=== PATIENT | male | born 1955 | race Caucasian/White ===

== ENCOUNTER 2023-03-30 11:20 | Inpatient (IN) ==
[2023-03-30] MEDS ORDERED: fentaNYL citrate PF 100 MCG/2 ML VIAL IV STA ×2 (11:49→13:59)
--- NOTE | 2023-03-30 11:55 | Emergency Department Note ---
History of Present Illness General Chief complaint: Illness Stated complaint: FALL,HIT HEAD, RSV,PAIN IN RIBS Time Seen by Provider: 03/30/23 11:43 History of Present Illness Maximum Pain Intensity: 10 67-year-old male presents emergency department with worsening cough and right back pain. The patient was seen in [facility] emergency department on 26 March for a fall in which she had hit his head and injured the right side of his rib cage. Patient had at the time a complete evaluation in the emergency department including lab work which included a troponin and a D-dimer electrolytes CBC a chest x-ray a CT of his head neck chest and abdomen pelvis. Reportedly did not have any fractured ribs or intracranial hemorrhage. Patient drove back from [place] and has had increased shortness of breath and swelling to the legs bilaterally increased cough and increased back pain as he states that he coughed and he felt like a rib had cracked. Patient denies hemoptysis. Patient denies fever or substernal chest pressure. According to the family at bedside he also was diagnosed with RSV bronchitis and reportedly a swab was done at the time for that diagnosis. Home Medications Medication Instructions Recorded Confirmed Type acetaminophen 500 mg tablet 500 mg PO Q6H PRN PAIN/FEVER 03/30/23 03/30/23 History ibuprofen 200 mg tablet 200 mg PO Q6H PRN PAIN/FEVER 03/30/23 03/30/23 History latanoprost 0.005 % eye drops 1 drp OPB HS 03/30/23 03/30/23 History Allergies Allergy/AdvReac Type Severity Reaction Status Date / Time No Known Allergies Allergy Unknown Verified 03/30/23 14:56 Past Med/Surg History Medical History Family history of colon cancer Family history of skin cancer Mother Surgical History History of cholecystectomy Social History Smoking Status: Never smoker Hx Alcohol Use: No Immunizations: Past medical history includes onychomycoses Immunizations his tetanus is up-to-date Review of Systems A total of 10 systems reviewed and were otherwise negative Constitutional: + body aches; no fever Respiratory: + cough and + dyspnea Cardiovascular: no chest pain Gastrointestinal: no abdominal pain Physical Exam Vital Signs Vital Signs - 24 hr 03/30/23 11:30 03/30/23 12:26 03/30/23 12:30 Temperature 36.8 C Temperature Source Temporal Artery Scan Pulse Rate 92 H 73 Pulse Rate [Apical] Pulse Rate from SpO2 Sensor 74 Respiratory Rate 18 17 Blood Pressure 166/93 H Blood Pressure [Right Arm] Blood Pressure Mean 117 Blood Pressure Mean [Right Arm] Pulse Oximetry 95 93 93 Oxygen Delivery Method Room Air Nasal Cannula Oxygen Flow Rate 2 Sepsis Recent Fever Within 48 Hours No Sepsis New/Unexplained Change in Mental Status No Sepsis Action Taken by Nursing No Action Required 03/30/23 12:30 03/30/23 12:30 03/30/23 12:53 Temperature Temperature Source Pulse Rate 73 72 Pulse Rate [Apical] Pulse Rate from SpO2 Sensor 73 Respiratory Rate 19 Blood Pressure 163/91 H Blood Pressure [Right Arm] Blood Pressure Mean 130 Blood Pressure Mean [Right Arm] Pulse Oximetry 93 Oxygen Delivery Method Oxygen Flow Rate Sepsis Recent Fever Within 48 Hours Sepsis New/Unexplained Change in Mental Status Sepsis Action Taken by Nursing 03/30/23 13:00 03/30/23 13:00 03/30/23 15:59 Temperature Temperature Source Pulse Rate 70 Pulse Rate [Apical] 77 Pulse Rate from SpO2 Sensor 71 Respiratory Rate 17 18 Blood Pressure 155/94 H Blood Pressure [Right Arm] 172/97 H Blood Pressure Mean 109 Blood Pressure Mean [Right Arm] 122 Pulse Oximetry 94 93 Oxygen Delivery Method Oxygen Flow Rate Sepsis Recent Fever Within 48 Hours Sepsis New/Unexplained Change in Mental Status Sepsis Action Taken by Nursing GENERAL: Patient is awake alert in no acute distress patient is resting comfortably and showing no signs of anxiety EYES: The conjunctivae are clear. The pupils are round and reactive. Head exam reveals an area of abrasion and ecchymosis to the right side of his forehead EARS, NOSE, MOUTH AND THROAT: The nose is without any evidence of any deformity. Mucous membranes are moist. Tongue is midline. NECK: The neck is nontender and supple. RESPIRATORY: Rhonchi bilaterally CARDIOVASCULAR: Regular rate and rhythm noted there no murmurs rubs or gallops normal S1 normal S2. GASTROINTESTINAL: The abdomen is soft. Abdomen is nontender. PELVIS: The Pelvis is stable. No tenderness to palpation is noted. BACK: Patient has tenderness to the right mid back laterally, there is no obvious ecchymosis, no crepitance MUSCULOSKELETAL/EXTREMITIES: There is no evidence of gross deformity full range of motion is noted in the hips and shoulders. There is bilateral lower extremity edema present the calves are nontender SKIN: There is no obvious evidence of any rash. There are no petechiae, pallor or cyanosis noted. NEUROLOGIC: Patient is awake alert and oriented x3 strength is symmetric Course Reevaluation(s) Reevaluation #1: Patient on repeat examination is feeling much improved. Patient states that he is hungry. Patient is currently on 2 L of oxygen. Patient is in no major respiratory distress. I discussed the evaluation with the patient the patient's family member at bedside for admission Time: 15:09 Consultations Consultation #1: [facility], pneumonitis, RSV, influenza Time: 15:10 Administered Medications Discontinued Medications Fentanyl Citrate (Fentanyl Citrate Pf 100 Mcg/2 Ml Vial) 50 mcg IV NOW STA Stop: 03/30/23 11:50 Last Admin: 03/30/23 12:07 Dose: 50 mcg Documented By: LYLE Fentanyl Citrate (Fentanyl Citrate Pf 100 Mcg/2 Ml Vial) 50 mcg IV NOW STA Stop: 03/30/23 14:00 Last Admin: 03/30/23 14:08 Dose: 50 mcg Documented By: LYLE Ioversol (Optiray 320 125ml) 117 ml IV ONCE ONE Stop: 03/30/23 13:55 Last Admin: 03/30/23 13:55 Dose: 117 ml Documented By: LAMONTE Critical Care Time Critical Care Time: Yes Total Critical Care Time: 35 I have personally spent greater than 35 minutes of critical care time in the direct management of this patient. This includes bedside care, interpretation of diagnostic studies, and testing, discussion with consultants, patient, and family members, and other required patient management activities. These minutes are in excess of all separately billable procedures. Medical Decision Making Medical Records Attestation: I reviewed the patient's medical records. Home Medications Current Medication List: was personally reviewed by me Laboratory Data Attestation: I reviewed the patient's lab results. Labs interpreted by me patient has hyponatremia 03/30/23 12:00 03/30/23 12:00 Lab Results 03/30/23 03/30/23 Range/Units 12:00 12:27 WBC 5.85 (4.8-10.8) K/ul RBC 4.57 L (4.70-6.10) M/uL Hgb 13.5 L (14.0-18.0) g/dl Hct 37.9 L (42.0-52.0) % MCV 82.9 (80.0-100.0) fL MCH 29.5 (25.0-34.0) pg MCHC 35.6 (32.0-36.0) g/dL RDW Std Deviation 41.1 (36.4-46.3) fL RDW Coeff of Rosas 13.6 (11.5-14.5) % Plt Count 213 (130-400) K/uL MPV 10.8 (9.4-12.4) fL Immature Gran % (Auto) 0.7 % Neut % (Auto) 82.2 % Lymph % (Auto) 7.5 % [place] % (Auto) 8.5 % Eos % (Auto) 0.9 % Baso % (Auto) 0.2 % Neut # (Auto) 4.81 (1.40-6.50) K/uL Lymph # (Auto) 0.44 L (1.20-3.40) K/uL [place] # (Auto) 0.50 (0.11-0.59) K/uL Eos # (Auto) 0.05 (0.00-0.50) K/uL Baso # (Auto) 0.01 (0.00-0.20) K/uL Immature Gran # (Auto) 0.04 (0.01-0.20) K/uL PT 10.9 (9.0-12.0) Seconds INR 1.0 (0.9-1.1) APTT 29 (21-31) Seconds PTT Ratio 1.0 Sodium 127 L (136-145) mmol/L Potassium 3.9 (3.5-5.1) mmol/L Chloride 95 L (98-107) mmol/L Carbon Dioxide 25 (21-32) mmol/L Anion Gap 7 (3-11) BUN 13 (6-23) mg/dl Creatinine 0.72 (0.6-1.4) mg/dl Est Cr Clr Drug Dosing 140.5 ml/min Est GFR ( Amer) 113.5 ml/min Est GFR (Non-Af Amer) 97.9 ml/min BUN/Creatinine Ratio 18.1 (10-20) Glucose 141 H (70-99(Fasting)) mg/dl Lactate 1.5 (0.4-2.0) mmol/L Calcium 8.3 L (8.6-10.3) mg/dl Magnesium 1.8 (1.7-2.4) mg/dl Total Bilirubin 0.7 (0.2-1.0) mg/dl Direct Bilirubin 0.2 (0-0.2) mg/dl AST 66 H (13-39) U/L ALT 108 H (7-52) U/L Alkaline Phosphatase 115 H (34-104) U/L Troponin I High Sens 4.3 (0-20) pg/ml Total Protein 6.7 (6.0-8.3) gm/dl Albumin 4.0 (3.4-5.0) gm/dl Procalcitonin 0.15 (0-0.5) ng/ml Adenovirus (PCR) Not Detected (NotDetected) B. pertussis DNA (PCR) Not Detected (NotDetected) B.parapertussis DNA PCR Not Detected (NotDetected) C. pneumoniae DNA (PCR) Not Detected (NotDetected) Coronavirus OC43 (PCR) Not Detected (NotDetected) Coronavirus HKU1 (PCR) Not Detected (NotDetected) Coronavirus 229E (PCR) Not Detected (NotDetected) SARS-CoV-2 (PCR) Not Detected (NotDetected) Coronavirus NL63 (PCR) Not Detected (NotDetected) Human Metapneumovir PCR Not Detected (NotDetected) Influenza A (H3) PCR DETECTED A* (NotDetected) Influenza Type B (PCR) Not Detected (NotDetected) M. pneumoniae (PCR) Not Detected (NotDetected) Parainfluenza 1 (PCR) Not Detected (NotDetected) Parainfluenza 2 (PCR) Not Detected (NotDetected) Parainfluenza 3 (PCR) Not Detected (NotDetected) Parainfluenza 4 (PCR) Not Detected (NotDetected) RSV (PCR) DETECTED A* (NotDetected) Entero/Rhino (PCR) Not Detected (NotDetected) Imaging Data Attestation: I personally reviewed and interpreted this imaging study as follows: My Impression: Chest x-ray interpreted by me negative for pneumothorax infiltrate or obvious rib fracture Radiologist's Impression: Chest X-Ray 03/30/23 11:49 XR chest 1V portable CLINICAL HISTORY: Sepsis TECHNIQUE: Single frontal radiograph of the chest was obtained. Comparison: None available at the time of this dictation. FINDINGS: Exam is limited by underpenetration. Cardiomegaly is noted. Atelectasis is seen bilaterally. No evidence of pleural effusion or pneumothorax. IMPRESSION: No acute abnormalities and in particular no radiographic evidence of pneumonia. ACT 112: Negative or not required by law. Electronically signed by: Joshua Potter M.D. 03/30/2023 1:01 PM Chest CTA 03/30/23 13:04 CHEST CTA for PULMONARY ARTERIES CT DOSE: 915.23 mGy.cm HISTORY: Shortness of breath. PE TECHNIQUE: Multiaxial CT images of the chest were performed following the intravenous administration of contrast to evaluate the pulmonary arteries. 3D/Maximal intensity projection images were also obtained. Sagittal and coronal reformations were also reviewed. A dose lowering technique was utilized adhering to the principles of ALARA. COMPARISON STUDY: None. FINDINGS: Mild chronic anterior wedging at T7. There are acute nondisplaced right fifth through ninth rib fractures. The seventh and eighth ribs demonstrate both anterior and posterior lateral fractures. Limited views the upper abdomen demonstrate a normal liver, spleen, and adrenal glands. Prior cholecystectomy. Mild circumferential thickening of the distal esophagus with a few prominent distal paraesophageal lymph nodes. Dominant paraesophageal lymph node on image 94 measures 13 x 7 mm. Scattered mediastinal lymph nodes measure subcentimeter in short axis diameter and therefore do not meet CT criteria for pathologic involvement. No hilar lymphadenopathy. Trace right pleural effusion is noted. No left pleural effusion. No pericardial effusion. The heart is borderline enlarged. Normal caliber thoracic aorta with no evidence for a dissection. Mild coronary artery calcifications are noted. No filling defects within the pulmonary arteries to suggest a pulmonary embolus. Mild bronchial wall thickening. No pneumothorax. A 3 mm subpleural nodule within the right lung apex on image 199. A few scattered patchy and linear densities within the lung bases most pronounced within the right lower lobe. This could represent a combination of subsegmental atelectasis and a low-grade pneumonitis. There is a 6 mm nodule within the right lower lobe on image 131. Trace mucoid material within the trachea and mainstem bronchi. IMPRESSION: 1. No evidence for a pulmonary embolus. 2. Right fifth through ninth acute rib fractures as described above. No pneumothorax. 3. Trace right pleural effusion. 4. A 6 mm indeterminate pulmonary nodule within the right lower lobe. Please refer to the chart below for recommended follow-up. 5. A few scattered patchy and linear densities within the lung bases most pronounced within the right lower lobe. This could represent a combination of subsegmental atelectasis and a low-grade pneumonitis possibly secondary to aspiration. 6. Mild circumferential thickening of the distal esophagus with a few prominent distal paraesophageal lymph nodes. This may represent a mild esophagitis. 7. Additional findings as described above. Please refer to below summary of Fleischner criteria recommendations for follow- up of incidental CT nodules (Melissa Artis, Guidelines for management of small pulmonary nodules detected on CT scans: A statement from the Fleischner Society, Radiology 237: [phone].) SOLID NODULES Solitary nodule size: <6 mm * Low risk patients: no follow-up needed * high risk patients: optional CT at 12 months Solitary nodule size: 6-8 mm * Low risk patients: follow-up at 6-12 months, then consider further follow-up at 18-24 months * high risk patients: initial follow-up CT at 6-12 months and then at 18-24 months if no change Solitary nodule size: >8 mm * either low or high risk patients - consider follow-up CT at 3 months, and/or CT-PET, and/or biopsy Multiple nodules size: <6 mm * Low risk patients: no routine follow-up * high risk patients: optional CT at 12 months Multiple nodules size: 6-8 mm * Low risk patients: follow-up at 3-6 months, then consider further follow-up at 18-24 months * high risk patients: follow-up at 3-6 months, then at 18-24 months if no change Multiple nodules size: >8 mm * Low risk patients: follow-up at 3-6 months, then consider further follow-up at 18-24 months * high risk patients: follow-up at 3-6 months, then at 18-24 months if no change Note: newly detected indeterminate nodule in persons 35 years of age or older. * Low risk patients: minimal or absent history of smoking and/or other known risk factors * high risk patients: history of smoking or of other known risk factors (e.g. first degree relative with lung cancer, or exposure to asbestos, radon, uranium) * if a nodule up to 8 mm is partly solid or is ground glass further follow-up is required after 24 months to exclude possible slow growing adenocarcinoma (CAROL) SUBSOLID NODULES Solitary pure ground-glass nodule * nodule size <6 mm - no CT follow-up required * nodule size >=6 mm - follow-up CT at 6-12 months, then every 2 years until 5 years Solitary part-solid nodule * nodule size <6 mm - no CT follow-up required * nodule size >=6 mm - follow-up CT at 3-6 months. If unchanged, and solid component remains <6 mm, then annual follow-up for 5 years Multiple subsolid nodules * nodule size <6 mm - follow-up CT at 3-6 months, consider further follow-up at 2 and 4 years if stable * nodule size >=6 mm - follow-up CT at 3-6 months, subsequent management based on the most suspicious nodule(s) ACT 112: Negative or not required by law. Electronically signed by: Wale Castro M.D. 03/30/2023 2:46 PM ECG Data Attestation: I personally reviewed and interpreted this ECG as follows: Additional Comments: EKG interpreted by me normal sinus rhythm rate of 73, left axis deviation, nonspecific T abnormality, no obvious ST segment elevation or depression Telemetry was ordered by me, interpreted as normal sinus rhythm rate of 73 MDM Narrative Medical decision making differential diagnosis includes pneumonia, rib fracture, bronchitis, upper respiratory tract infection Plan is to check labs, EKG, chest x-ray, give IV pain medicine I did review the emergency department discharge notes of what was performed on 03/26/2023 at the [facility] in [facility] Patient's family is at bedside to provide me history of the patient deteriorating with an increased cough and increased rib pain and shortness of breath as well as swelling since the event on March 26 I do not suspect the patient to be in septic shock at this time. Patient was started empirically on Zosyn, the patient is influenza and RSV positive with multiple rib fractures. Patient has no evidence of pneumothorax. Patient is much improved after IV fentanyl dosing x 2. We will admit the patient for aggressive pulmonary toilet and further treatment of his pain Impression & Plan Multiple fractures of ribs of right side, Pneumonitis, Influenza A, RSV infection Discharge Plan Visit Data Chief Complaint: Illness Stated Complaint: FALL,HIT HEAD, RSV,PAIN IN RIBS ED Provider: James Briones Discharge Problem: Multiple fractures of ribs of right side, Pneumonitis, Influenza A, RSV infection Patient Disposition: Admitted As Inpatient Forms Stand Alone Forms: [facility] Prescriptions Prescriptions: No Action latanoprost 0.005 % drops 1 drp OPB HS acetaminophen [Tylenol Ex Str Rapid Release] 500 mg Tablet 500 mg PO Q6H PRN (Reason: PAIN/FEVER) ibuprofen 200 mg Tablet 200 mg PO Q6H PRN (Reason: PAIN/FEVER) Referrals Referrals: Luis Baez MD [Outside Practitioners] -
[2023-03-30 12:20] LABS: Basophils # (auto) 0.01 K/uL (0.00-0.20); Basophils % (auto) 0.2 %; Eosinophils # (auto) 0.05 K/uL (0.00-0.50); Eosinophils % (auto) 0.9 %; Hematocrit (blood only) 37.9 % (42.0-52.0); Hemoglobin 13.5 g/dl (14.0-18.0); Immature Granulocytes # (auto) 0.04 K/uL (0.01-0.20); Immature Granulocytes % (auto) 0.7 %; Lymphocytes # (auto) 0.44 K/uL (1.20-3.40); Lymphocytes % (auto) 7.5 %; Mean Corpuscular Hemoglobin 29.5 pg (25.0-34.0); Mean Corpuscular Hgb Conc 35.6 g/dL (32.0-36.0); Mean Corpuscular Volume 82.9 fL (80.0-100.0); Mean Platelet Volume 10.8 fL (9.4-12.4); Monocytes % (auto) 8.5 %; Neutrophils # (auto) 4.81 K/uL (1.40-6.50); Neutrophils % (auto) 82.2 %; Platelet Count 213 K/uL (130-400); RDW Coefficient of Variation 13.6 % (11.5-14.5); RDW Standard Deviation 41.1 fL (36.4-46.3); Red Blood Count 4.57 M/uL (4.70-6.10); White Blood Count 5.85 K/ul (4.8-10.8)
[2023-03-30 12:35] LABS: BUN Creatinine Ratio 18.1 (10-20); Bilirubin Direct 0.2 mg/dl (0-0.2); Bilirubin,Total 0.7 mg/dl (0.2-1.0); Calcium 8.3 mg/dl (8.6-10.3); Creatinine Clr Calc Pharmacy 140.5 ml/min; Est GFR (African American) 113.5 ml/min; Est GFR (Non-African American) 97.9 ml/min; Magnesium 1.8 mg/dl (1.7-2.4); Potassium 3.9 mmol/L (3.5-5.1); Total Protein 6.7 gm/dl (6.0-8.3)
[2023-03-30 12:41] LABS: Troponin I High Sensitivity 4.3 pg/ml (0-20)
[2023-03-30 12:56] LABS: Partial Thromboplastin Time 29 Seconds (21-31); Prothrombin Time 10.9 Seconds (9.0-12.0)
--- NOTE | 2023-03-30 13:03 | XRay Report ---
XR chest 1V portable CLINICAL HISTORY: Sepsis TECHNIQUE: Single frontal radiograph of the chest was obtained. Comparison: None available at the time of this dictation. FINDINGS: Exam is limited by underpenetration. Cardiomegaly is noted. Atelectasis is seen bilaterally. No evide nce of pleural effusion or pneumothorax. IMPRESSION: No acute abnormalities and in particular no radiographic evidence of pneumonia. ACT 112: Negative or not required by law. Electronically signed by: Joshua Potter M.D. 03/30/2023 1:01 PM
[2023-03-30 13:34] LABS: Adenovirus PCR Not Detected (NotDetected); Bordetella parapertussis PCR Not Detected (NotDetected); Bordetella pertussis PCR Not Detected (NotDetected); Chlamydia pneumoniae PCR Not Detected (NotDetected); Coronavirus 229E PCR Not Detected (NotDetected); Coronavirus CoV-2 (COVID19)PCR Not Detected (NotDetected); Coronavirus HKU1 PCR Not Detected (NotDetected); Coronavirus NL63 PCR Not Detected (NotDetected); Coronavirus OC43PCR Not Detected (NotDetected); Human Metapneumovirus PCR Not Detected (NotDetected); Influenza B PCR Not Detected (NotDetected); Mycoplasma pneumoniae PCR Not Detected (NotDetected); Parainfluenza Virus 1 PCR Not Detected (NotDetected); Parainfluenza Virus 2 PCR Not Detected (NotDetected); Parainfluenza Virus 3 PCR Not Detected (NotDetected); Parainfluenza Virus 4 PCR Not Detected (NotDetected); Rhinovirus/Enterovirus PCR Not Detected (NotDetected)
[2023-03-30 13:37] LABS: Influenza A (H3) PCR DETECTED (NotDetected); Respiratory Syncytial VirusPCR DETECTED (NotDetected)
[2023-03-30] MEDS ORDERED: OPTIRAY 320 125ml IV ONE (13:54)
--- NOTE | 2023-03-30 14:47 | CT Scan Report ---
CHEST CTA for PULMONARY ARTERIES CT DOSE: 915.23 mGy.cm HISTORY: Shortness of breath. PE TECHNIQUE: Multiaxial CT images of the chest were performed following the intravenous administration of contrast to evaluate the pulmonary arteries. 3D/Maximal intensity projection images were also obta ined. Sagittal and coronal reformations were also reviewed. A dose lowering technique was utilized a dhering to the principles of ALARA. COMPARISON STUDY: None. FINDINGS: Mild chronic anterior wedging at T7. There are acute nondisplaced right fifth through ninth rib fractures. The seventh and eighth ribs demonstrate both anterior and posterior lateral fractures . Limited views the upper abdomen demonstrate a normal liver, spleen, and adrenal glands. Prior anali cystectomy. Mild circumferential thickening of the distal esophagus with a few prominent distal parae sophageal lymph nodes. Dominant paraesophageal lymph node on image 94 measures 13 x 7 mm. Scattered m ediastinal lymph nodes measure subcentimeter in short axis diameter and therefore do not meet CT crit eria for pathologic involvement. No hilar lymphadenopathy. Trace right pleural effusion is noted. No left pleural effusion. No pericardial effusion. The heart is borderline enlarged. Normal caliber thor acic aorta with no evidence for a dissection. Mild coronary artery calcifications are noted. No filli ng defects within the pulmonary arteries to suggest a pulmonary embolus. Mild bronchial wall thickeni ng. No pneumothorax. A 3 mm subpleural nodule within the right lung apex on image 199. A few scattere d patchy and linear densities within the lung bases most pronounced within the right lower lobe. This could represent a combination of subsegmental atelectasis and a low-grade pneumonitis. There is a 6 mm nodule within the right lower lobe on image 131. Trace mucoid material within the trachea and main stem bronchi. IMPRESSION: 1. No evidence for a pulmonary embolus. 2. Right fifth through ninth acute rib fractures as described above. No pneumothorax. 3. Trace right pleural effusion. 4. A 6 mm indeterminate pulmonary nodule within the right lower lobe. Please refer to the chart below for recommended follow-up. 5. A few scattered patchy and linear densities within the lung bases most pronounced within the right lower lobe. This could represent a combination of subsegmental atelectasis and a low-grade pneumonit is possibly secondary to aspiration. 6. Mild circumferential thickening of the distal esophagus with a few prominent distal paraesophageal lymph nodes. This may represent a mild esophagitis. 7. Additional findings as described above. Please refer to below summary of Fleischner criteria recommendations for follow-up of incidental CT n odules (Melissa Artis, Guidelines for management of small pulmonary nodules detected on CT scans: A jay wilcox from the Fleischner Society, Radiology 237: [phone].) SOLID NODULES Solitary nodule size: <6 mm * Low risk patients: no follow-up needed * high risk patients: optional CT at 12 months Solitary nodule size: 6-8 mm * Low risk patients: follow-up at 6-12 months, then consider further follow-up at 18-24 months * high risk patients: initial follow-up CT at 6-12 months and then at 18-24 months if no change Solitary nodule size: >8 mm * either low or high risk patients - consider follow-up CT at 3 months, and/or CT-PET, and/or biopsy Multiple nodules size: <6 mm * Low risk patients: no routine follow-up * high risk patients: optional CT at 12 months Multiple nodules size: 6-8 mm * Low risk patients: follow-up at 3-6 months, then consider further follow-up at 18-24 months * high risk patients: follow-up at 3-6 months, then at 18-24 months if no change Multiple nodules size: >8 mm * Low risk patients: follow-up at 3-6 months, then consider further follow-up at 18-24 months * high risk patients: follow-up at 3-6 months, then at 18-24 months if no change Note: newly detected indeterminate nodule in persons 35 years of age or older. * Low risk patients: minimal or absent history of smoking and/or other known risk factors * high risk patients: history of smoking or of other known risk factors (e.g. first degree relative with lung cancer, or exposure to asbestos, radon, uranium) * if a nodule up to 8 mm is partly solid or is ground glass further follow-up is required after 24 m onths to exclude possible slow growing adenocarcinoma (CAROL) SUBSOLID NODULES Solitary pure ground-glass nodule * nodule size <6 mm - no CT follow-up required * nodule size >=6 mm - follow-up CT at 6-12 months, then every 2 years until 5 years Solitary part-solid nodule * nodule size <6 mm - no CT follow-up required * nodule size >=6 mm - follow-up CT at 3-6 months. If unchanged, and solid component remains <6 mm, then annual follow-up for 5 years Multiple subsolid nodules * nodule size <6 mm - follow-up CT at 3-6 months, consider further follow-up at 2 and 4 years if sta ble * nodule size >=6 mm - follow-up CT at 3-6 months, subsequent management based on the most suspiciou s nodule(s) ACT 112: Negative or not required by law. Electronically signed by: Wale Castro M.D. 03/30/2023 2:46 PM
[2023-03-30] MEDS ORDERED: PIPERACILLIN/TAZOBACTAM 4.5 GM/100 ML BAG IV ONE (14:51)
[2023-03-30] MEDS: SODIUM CHLORIDE 0.9% 1,000 ML IV SCH (17:38)
[2023-03-30] MEDS: LIDOCAINE 5% 1 PATCH TD SCH (17:55)
[2023-03-30] MEDS: ACETAMINOPHEN 500 MG TAB PO SCH (17:55)
--- NOTE | 2023-03-30 19:54 | History & Physical Report ---
Date of Service March 30, 2023 Assessment & Plan (1) Multiple fractures of ribs of right side: Plan: Admit to [facility] with telemetry Patient presenting from home with reports of severe right-sided rib pain. Was in [place] last week for his son's wedding and suffered a syncopal event. Was evaluated in the ED and per patient report, had unremarkable head, neck, chest CT. Was diagnosed with RSV. In the ED today, CT chest shows right fifth through ninth acute nondisplaced rib fractures, seventh and eighth ribs have anterior and posterior lateral fractures. Patient became mildly hypoxic after receiving IV pain medication, currently satting well on 2 L of oxygen via nasal cannula Pain control with scheduled Tylenol, Lidoderm patch, PRN oxycodone and IV morphine for breakthrough pain Incentive spirometer (2) Pneumonitis: (3) Influenza A: (4) RSV infection: Plan: Bio fire + for RSV and influenza A CTA chest shows patchy and linear densities within the lung bases, greater on the right No leukocytosis, afebrile, procalcitonin WNL Likely secondary to atelectasis from rib fractures Received IV Zosyn in the ED, will hold on further antibiotics at this time Given duration of symptoms, Tamiflu not indicated for influenza A Continue supportive care with IVF, Mucinex, incentive spirometer, flutter valve (5) Pulmonary nodule: Plan: CTA chest shows A 6 mm indeterminate pulmonary nodule within the right lower lobe Outpatient follow-up Low risk patients: follow-up at 6-12 months, then consider further follow-up at 18-24 months DVT PROPHYLAXIS SQ Lovenox Patient seen in collaboration with Dr. Giron. I spent a total of 75 minutes coordinating, documenting, and providing care for this patient excluding time spent in the performance of separately billed services. This included personally reviewing all current laboratories and im aging studies, medication reconciliation, outpatient chart review, and discussion with specialists. Admission and Anticipated Discharge Date Admission Date: March 30, 2023 History of Present Illness Chief Complaint: Rib pain Primary Care Provider: Tony Lawson MD 67-year-old male without significant past medical or surgical history who presents to the ED for evaluation of right rib pain. History is obtained from the patient and review of outpatient PCP records. Patient reports he developed cold-like symptoms last week. He then traveled to [place] on 03/24 for his son's wedding. Patient was at the rehearsal dinner on 03/26 when he states he started to feel worse. Reports that he felt lightheaded and like he needed to get some fresh air. Patient reports that he was walking down a long flight of steps and reached the door at the bottom and that his last thing he remembers. He woke up on the ground with EMS present. Patient did strike his head on the concrete. He was taken to a local ED. Patient reports he had a CT scan of his head, neck, chest. States that findings were unremarkable. He was also diagnosed with RSV. Patient attended his son's wedding on the following day and traveled back to [place] the next day. Patient reports ongoing severe right-sided rib pain. He has had a cough however it has been limited secondary to severe rib pain. States he has chest congestion however is unable to produce any mucus. Patient denies chest pain and shortness of breath. No further episodes of lightheadedness, dizziness, syncopal events. Reports a fair appetite however denies abdominal pain, nausea, vomiting, diarrhea. No urinary symptoms. In the ED, patient is hemodynamically stable. He did become mildly h ypoxic after receiving IV pain medication. Currently saturating well on 2 L of oxygen via nasal cannula. Patient tested positive for RSV and influenza A. CTA chest negative for pulmonary embolism however shows right fifth through ninth nondisplaced rib fractures. The seventh and eighth ribs demonstrate both anterior and posterior lateral fractures. Patient was given IV fentanyl and IV Zosyn. Allergies Allergy/AdvReac Type Severity Reaction Status Date / Time No Known Allergies Allergy Unknown Verified 03/30/23 14:56 Home Medications Medication Instructions Recorded Confirmed Type acetaminophen 500 mg tablet 500 mg PO Q6H PRN PAIN/FEVER 03/30/23 03/30/23 History ibuprofen 200 mg tablet 200 mg PO Q6H PRN PAIN/FEVER 03/30/23 03/30/23 History latanoprost 0.005 % eye drops 1 drp OPB HS 03/30/23 03/30/23 History Past Med/Surg History Medical History No significant medical problems Family history of colon cancer Family history of skin cancer Mother Surgical History History of cholecystectomy Social History Smoking Status: Never smoker Hx Alcohol Use: No Hx Substance Use: No Preferred Language: Swazi Communication Ability: Effective Fitness Coordinator Required: No Beliefs That Will Affect Care: None Current Living Situation: Spouse Feels Safe at Home: Yes Safety Concerns: Feels Safe At This Time Assistive Devices: None Physical Exam Constitutional: WD/WN, vitals as above + obese; no acute distress Eyes: PERRL, conjunctivae normal, anicteric sclerae ENMT: external ear and nose normal, oropharynx normal Respiratory: normal respiratory effort; no respiratory distress Auscultation: + diminished lung sounds Cardiovascular: Rate/Rhythm: regular rate and regular rhythm Vessels: normal peripheral pulses Extremities: no edema Gastrointestinal (Abdomen): normal bowel sounds, soft, nontender, no hepatosplenomegaly Musculoskeletal: no cyanosis or clubbing, extremities motor strength 5/5 Skin: no rashes, warm and dry Neurologic: PERRL, EOMI, accommodation nl, no face palsy, no dysarthria Psychiatric: A+Ox3, euthymic affect Results & Data Results & Data Vital Signs (Past 12 Hours) Vital Signs Temp Pulse Pulse Pulse Resp BP BP 03/30/23 17:33 03/30/23 17:17 36.7 C 74 20 177/100 H 03/30/23 16:53 78 03/30/23 16:22 74 20 161/103 H 03/30/23 15:59 77 18 172/97 H 03/30/23 13:00 70 17 03/30/23 13:00 155/94 H 03/30/23 12:53 72 03/30/23 12:30 73 19 03/30/23 12:30 163/91 H 03/30/23 12:30 03/30/23 12:26 73 17 03/30/23 11:30 36.8 C 92 H 18 166/93 H Pulse Ox O2 Del Method O2 Flow Rate 03/30/23 17:33 Nasal Cannula 2 03/30/23 17:17 94 Nasal Cannula 3 03/30/23 16:53 03/30/23 16:22 96 Room Air 03/30/23 15:59 93 03/30/23 13:00 94 03/30/23 13:00 03/30/23 12:53 03/30/23 12:30 93 03/30/23 12:30 03/30/23 12:30 93 Nasal Cannula 2 03/30/23 12:26 93 03/30/23 11:30 95 Room Air Laboratory Results Short CBC 03/30/23 Range/Units 12:00 WBC 5.85 (4.8-10.8) K/ul Hgb 13.5 L (14.0-18.0) g/dl Hct 37.9 L (42.0-52.0) % Plt Count 213 (130-400) K/uL BMP 03/30/23 12:00 Sodium 127 L Potassium 3.9 Chloride 95 L Carbon Dioxide 25 BUN 13 Creatinine 0.72 Glucose 141 H Calcium 8.3 L Liver Function 03/30/23 Range/Units 12:00 Total Bilirubin 0.7 (0.2-1.0) mg/dl Direct Bilirubin 0.2 (0-0.2) mg/dl AST 66 H (13-39) U/L ALT 108 H (7-52) U/L Alkaline Phosphatase 115 H (34-104) U/L Albumin 4.0 (3.4-5.0) gm/dl Diagnostic Findings Chest X-Ray 03/30/23 11:49 XR chest 1V portable CLINICAL HISTORY: Sepsis TECHNIQUE: Single frontal radiograph of the chest was obtained. Comparison: None available at the time of this dictation. FINDINGS: Exam is limited by underpenetration. Cardiomegaly is noted. Atelectasis is seen bilaterally. No evidence of pleural effusion or pneumothorax. IMPRESSION: No acute abnormalities and in particular no radiographic evidence of pneumonia. ACT 112: Negative or not required by law. Electronically signed by: Joshua Potter M.D. 03/30/2023 1:01 PM Chest CTA 03/30/23 13:04 CHEST CTA for PULMONARY ARTERIES CT DOSE: 915.23 mGy.cm HISTORY: Shortness of breath. PE TECHNIQUE: Multiaxial CT images of the chest were performed following the intravenous administration of contrast to evaluate the pulmonary arteries. 3D/Maximal intensity projection images were also obtained. Sagittal and coronal reformations were also reviewed. A dose lowering technique was utilized adhering to the principles of ALARA. COMPARISON STUDY: None. FINDINGS: Mild chronic anterior wedging at T7. There are acute nondisplaced right fifth through ninth rib fractures. The seventh and eighth ribs demonstrate both anterior and posterior lateral fractures. Limited views the upper abdomen demonstrate a normal liver, spleen, and adrenal glands. Prior cholecystectomy. Mild circumferential thickening of the distal esophagus with a few prominent distal paraesophageal lymph nodes. Dominant paraesophageal lymph node on image 94 measures 13 x 7 mm. Scattered mediastinal lymph nodes measure subcentimeter in short axis diameter and therefore do not meet CT criteria for pathologic involvement. No hilar lymphadenopathy. Trace right pleural effusion is noted. No left pleural effusion. No pericardial effusion. The heart is borderline enlarged. Normal caliber thoracic aorta with no evidence for a dissection. Mild coronary artery calcifications are noted. No filling defects within the pulmonary arteries to suggest a pulmonary embolus. Mild bronchial wall thickening. No pneumothorax. A 3 mm subpleural nodule within the right lung apex on image 199. A few scattered patchy and linear densities within the lung bases most pronounced within the right lower lobe. This could represent a combination of subsegmental atelectasis and a low-grade pneumonitis. There is a 6 mm nodule within the right lower lobe on image 131. Trace mucoid material within the trachea and mainstem bronchi. IMPRESSION: 1. No evidence for a pulmonary embolus. 2. Right fifth through ninth acute rib fractures as described above. No pneumothorax. 3. Trace right pleural effusion. 4. A 6 mm indeterminate pulmonary nodule within the right lower lobe. Please refer to the chart below for recommended follow-up. 5. A few scattered patchy and linear densities within the lung bases most pronounced within the right lower lobe. This could represent a combination of subsegmental atelectasis and a low-grade pneumonitis possibly secondary to aspiration. 6. Mild circumferential thickening of the distal esophagus with a few prominent distal paraesophageal lymph nodes. This may represent a mild esophagitis. 7. Additional findings as described above. Please refer to below summary of Fleischner criteria recommendations for follow- up of incidental CT nodules (Melissa Artis, Guidelines for management of small pulmonary nodules detected on CT scans: A statement from the Fleischner Society, Radiology 237: [phone].) SOLID NODULES Solitary nodule size: <6 mm * Low risk patients: no follow-up needed * high risk patients: optional CT at 12 months Solitary nodule size: 6-8 mm * Low risk patients: follow-up at 6-12 months, then consider further follow-up at 18-24 months * high risk patients: initial follow-up CT at 6-12 months and then at 18-24 months if no change Solitary nodule size: >8 mm * either low or high risk patients - consider follow-up CT at 3 months, and/or CT-PET, and/or biopsy Multiple nodules size: <6 mm * Low risk patients: no routine follow-up * high risk patients: optional CT at 12 months Multiple nodules size: 6-8 mm * Low risk patients: follow-up at 3-6 months, then consider further follow-up at 18-24 months * high risk patients: follow-up at 3-6 months, then at 18-24 months if no change Multiple nodules size: >8 mm * Low risk patients: follow-up at 3-6 months, then consider further follow-up at 18-24 months * high risk patients: follow-up at 3-6 months, then at 18-24 months if no change Note: newly detected indeterminate nodule in persons 35 years of age or older. * Low risk patients: minimal or absent history of smoking and/or other known risk factors * high risk patients: history of smoking or of other known risk factors (e.g. first degree relative with lung cancer, or exposure to asbestos, radon, uranium) * if a nodule up to 8 mm is partly solid or is ground glass further follow-up is required after 24 months to exclude possible slow growing adenocarcinoma (CAROL) SUBSOLID NODULES Solitary pure ground-glass nodule * nodule size <6 mm - no CT follow-up required * nodule size >=6 mm - follow-up CT at 6-12 months, then every 2 years until 5 years Solitary part-solid nodule * nodule size <6 mm - no CT follow-up required * nodule size >=6 mm - follow-up CT at 3-6 months. If unchanged, and solid component remains <6 mm, then annual follow-up for 5 years Multiple subsolid nodules * nodule size <6 mm - follow-up CT at 3-6 months, consider further follow-up at 2 and 4 years if stable * nodule size >=6 mm - follow-up CT at 3-6 months, subsequent management based on the most suspicious nodule(s) ACT 112: Negative or not required by law. Electronically signed by: Wale Castro M.D. 03/30/2023 2:46 PM Supervising Physician Co-Signing Physician Notes Pt was seen and examined. Agreed with Nunu ALARCON exam, assessment and plan. 67-year-old male without significant past medical or surgical history who presents to the ED for evaluation of right rib pain. Patient reports he developed cold-like symptoms last week. Pt said that he went to [place] to attend his son's wedding. He said during the rehearsal dinner on Wednesday where he felt lightheaded and fell at the bottom of the steps. Pt said that he hit his head on the concrete. He had CT imaging done at the local ED that were unremarkable. He was also diagnosed with RSV. After the wedding he traveled by car to [place] the next day. He has been having severe right sided rib pain. He said that rib pain worsening with cough. In the ER, CTA chest negative for pulmonary embolism however shows right fifth through ninth nondisplaced rib fractures. The seventh and eighth ribs demonstrate both anterior and posterior lateral fractures. Na on admission 127. Patient was given IV fentanyl and IV Zosyn. IVF given, will repeat BMP. Will hold on additional abx. Continue pain control. Will do incentive spirometry and flutter valve. Continue monitor closely. MD Mack
[2023-03-30] MEDS ORDERED: hydrALAZINE HCL 20 MG/ML VIAL IV ONE (21:03)
[2023-03-30] MEDS: guaiFENesin SUGAR FREE 100 MG/5 ML UDC PO SCH (21:05)
[2023-03-30] MEDS: oxyCODONE HCL IR 5 MG TAB (IMMEDIATE RELEASE) PO PRN (21:06)
[2023-03-30] MEDS ORDERED: BACITRACIN OINT 14 GM TUBE EXT PRN (21:07)
[2023-03-30] MEDS: MoRPHine SULFATE 4 MG/ML 1 ML CARP\\VIAL IV PRN (22:11)
[2023-03-30] MEDS: ENOXAPARIN INJ 40 MG/0.4 ML SYR SQ SCH (22:12)
[2023-03-31] MEDS: oxyCODONE HCL IR 5 MG TAB (IMMEDIATE RELEASE) PO PRN (01:06)
[2023-03-31] MEDS: guaiFENesin SUGAR FREE 100 MG/5 ML UDC PO SCH ×3 (01:06→12:23)
[2023-03-31] MEDS: ACETAMINOPHEN 500 MG TAB PO SCH ×3 (01:07→18:13)
[2023-03-31] MEDS ORDERED: tiZANidine HCL 4 MG TABLET PO PRN (01:12)
[2023-03-31] MEDS: SODIUM CHLORIDE 0.9% 1,000 ML IV SCH (03:19)
--- NOTE | 2023-03-31 05:56 | Communication Note ---
Date of Service: March 31, 2023 Patient fell from bed while bending over as per RN. Laceration over nose noted. No LOC. Patient drowsy as per RN. AP Traumatic facial trauma CT head CT maxillofacial CT cervical spine Hold aspirin and Lovenox for now until CT head results back. Hold narcotics and antispasmodic agents for sedation confusion. Will relay to AM provider.
[2023-03-31] MEDS ORDERED: ACETAMINOPHEN 1,000 MG/100 ML VIAL IV STA (05:58)
[2023-03-31 06:26] LABS: Basophils # (auto) 0.02 K/uL (0.00-0.20); Basophils % (auto) 0.2 %; Eosinophils # (auto) 0.05 K/uL (0.00-0.50); Eosinophils % (auto) 0.6 %; Hematocrit (blood only) 39.3 % (42.0-52.0); Hemoglobin 13.8 g/dl (14.0-18.0); Immature Granulocytes # (auto) 0.07 K/uL (0.01-0.20); Immature Granulocytes % (auto) 0.8 %; Lymphocytes # (auto) 1.21 K/uL (1.20-3.40); Lymphocytes % (auto) 14.2 %; Mean Corpuscular Hemoglobin 29.5 pg (25.0-34.0); Mean Corpuscular Hgb Conc 35.1 g/dL (32.0-36.0); Mean Platelet Volume 10.8 fL (9.4-12.4); Monocytes # (auto) 1.09 K/uL (0.11-0.59); Monocytes % (auto) 12.8 %; Neutrophils # (auto) 6.07 K/uL (1.40-6.50); Neutrophils % (auto) 71.4 %; Platelet Count 241 K/uL (130-400); RDW Coefficient of Variation 13.8 % (11.5-14.5); Red Blood Count 4.68 M/uL (4.70-6.10); White Blood Count 8.51 K/ul (4.8-10.8)
[2023-03-31 06:41] LABS: Albumin Globulin Ratio 1.5 (0.9-2); Albumin Level 4.1 gm/dl (3.4-5.0); BUN Creatinine Ratio 17.1 (10-20); Bilirubin,Total 0.7 mg/dl (0.2-1.0); Calcium 8.7 mg/dl (8.6-10.3); Est GFR (Non-African American) 95.7 ml/min; Globulin 2.8 gm/dl (2.5-4.0); Potassium 3.7 mmol/L (3.5-5.1); Total Protein 6.9 gm/dl (6.0-8.3)
--- NOTE | 2023-03-31 06:51 | CT Scan Report ---
CT OF THE HEAD WITHOUT CONTRAST CLINICAL HISTORY: head trauma COMPARISON STUDY: No previous studies for comparison. CT DOSE: 1676.33 mGy.cm TECHNIQUE: Helical axial images of the head were obtained without IV contrast. Automated exposure con trol was utilized for the study. A dose lowering technique was utilized adhering to the principles o f ALARA. FINDINGS: No acute intracranial hemorrhage, midline shift or mass effect is present. White matter hyp odensity suggests small vessel disease. The ventricular system is unremarkable. The basal cisterns ar e patent. No extra-axial collections are present. There are no findings to suggest acute dural sinus thrombosis or acute territorial infarct. No acute calvarial fracture is present. There are fluid leve ls within the left frontal sinuses are noted. Left frontal sinuses are largely opacified. There is ex tensive mucosal thickening within the ethmoid sinuses. There is also mild mucosal thickening within t he maxillary and sphenoid sinuses with bilateral maxillary sinus air-fluid levels. Age indeterminate mildly displaced depressed bilateral nasal bone fractures are present. There is a nasal contusion. IMPRESSION: 1. No acute intracranial findings. 2. No calvarial fracture. 3. Age indeterminate mildly displaced depressed bilateral nasal bone fractures. 4. Findings suggestive of acute sinusitis, as described above. ACT 112: Negative or not required by law. Electronically signed by: Larry Grissom M.D. 03/31/2023 6:49 AM
[2023-03-31 06:55] LABS: Thyroid Stimulating Hormone 2.885 uIu/ml (0.300-4.500)
--- NOTE | 2023-03-31 07:02 | CT Scan Report ---
MAXILLOFACIAL CT WITHOUT CONTRAST CLINICAL HISTORY: facial trauma COMPARISON STUDY: None. TECHNIQUE: A maxillofacial CT was performed without IV contrast. Coronal and sagittal reformats were viewed. Automated exposure control was utilized for the study. A dose lowering technique was utiliz ed adhering to the principles of ALARA. FINDINGS: Globes are intact. There is no retrobulbar hematoma. Nasal contusion is present. There are mildly displaced, depressed bilateral nasal bone fractures. No additional facial fractures are presen t. Orbital floors are intact. Extensive sinus opacification is noted. Large air-fluid levels within t he left frontal sinus are present. Ethmoid sinuses are largely opacified. Bilateral maxillary sinus a ir-fluid levels, left larger than right, are noted. There is moderate sphenoid sinus mucosal thickeni ng. Temporomandibular joints are aligned. IMPRESSION: 1. Age indeterminate mildly displaced mildly depressed bilateral nasal bone fractures. No additional facial fractures. 2. Findings suggestive of acute sinusitis, as described above. ACT 112: Negative or not required by law. Electronically signed by: Larry Grissom M.D. 03/31/2023 7:01 AM
--- NOTE | 2023-03-31 07:03 | CT Scan Report ---
CT OF THE CERVICAL SPINE WITHOUT CONTRAST CLINICAL HISTORY: fall/head trauma COMPARISON STUDY: No previous studies for comparison. TECHNIQUE: Helical axial images of the cervical spine were obtained without IV contrast. Sagittal a nd coronal reconstructions were viewed. Automated exposure control was utilized for the study. A do se lowering technique was utilized adhering to the principles of ALARA. FINDINGS: There is mild leftward curvature of the cervical spine. Vertebral body heights are maintain ed. No acute cervical spine fracture or subluxation is present. There is no prevertebral edema. Facet joints are intact. Moderate multilevel degenerative disc disease and facet arthrosis within the cer vical spine is present. IMPRESSION: No acute cervical spine fracture or subluxation. ACT 112: Negative or not required by law. Electronically signed by: Larry Grissom M.D. 03/31/2023 7:02 AM
[2023-03-31] MEDS ORDERED: AMPICILLIN SOD/SULBACTAM SOD 1,500 MG in SODIUM CHLOR 0.9% MINI-B 100 ML IV SCH (07:45)
[2023-03-31] MEDS: UNASYN 3000MG / NS q6h IV SCH ×3 (08:16→19:54)
[2023-03-31] MEDS: MoRPHine SULFATE 4 MG/ML 1 ML CARP\\VIAL IV PRN (13:30)
--- NOTE | 2023-03-31 13:41 | Hospitalist Progress Note ---
Date of Service March 31, 2023 Assessment & Plan (1) Multiple fractures of ribs of right side: Plan: Admitted to [facility] with telemetry Patient presenting from home with reports of severe right-sided rib pain. Was in [place] last week for his son's wedding and suffered a syncopal event. Was evaluated in the ED and per patient report, had unremarkable head, neck, chest CT. Was diagnosed with RSV. In the ED here, CT chest shows right fifth through ninth acute nondisplaced rib fractures, seventh and eighth ribs have anterior and posterior lateral fractures. Patient became mildly hypoxic after receiving IV pain medication, currently satting well on 2 L of oxygen via nasal cannula Pt still currently on 2L - some rhonchi on phys. exam, and pt reports feeling congested - will repeat CXR Pain control with scheduled Tylenol, Lidoderm patch, PRN oxycodone and IV morphine for breakthrough pain Incentive spirometer Overnight pt had a fall from chair - see alteration tailor apprentice note for detail no LOC Traumatic facial trauma CT head 1. No acute intracranial findings. 2. No calvarial fracture. 3. Age indeterminate mildly displaced depressed bilateral nasal bone fractures. 4. Findings suggestive of acute sinusitis, as described above. CT maxillofacial 1. Age indeterminate mildly displaced mildly depressed bilateral nasal bone fractures. No additional facial fractures. 2. Findings suggestive of acute sinusitis, as described above. CT cervical spine No acute cervical spine fracture or subluxation. Mildly displaced mildly depressed bilateral nasal bone fractures - Dr. Raygoza consulted - started unasyn for now (2) Pneumonitis: (3) Influenza A: (4) RSV infection: Plan: Bio fire + for RSV and influenza A CTA chest shows patchy and linear densities within the lung bases, greater on the right No leukocytosis, afebrile, procalcitonin WNL Likely secondary to atelectasis from rib fractures Received IV Zosyn in the ED, cont. w/ unasyn for sinusitis (pt also had facial trauma) Given duration of symptoms, Tamiflu not indicated for influenza A Continue supportive care with Mucinex, incentive spirometer, flutter valve (5) Pulmonary nodule: Plan: CTA chest shows A 6 mm indeterminate pulmonary nodule within the right lower lobe Outpatient follow-up Low risk patients: follow-up at 6-12 months, then consider further follow-up at 18-24 months Hyponatremia Na on admission 127, this AM 128 received IVF on admission, now fluids on hold pt feels congested, he is hypertensive, reports some mild edema - will give small dose lasix and will monitor closely repeat BMP AM Elevated LFTs - likely secondary to illness trending down DVT PROPHYLAXIS SQ Lovenox on hold d/t facial trauma Admission and Anticipated Discharge Date Admission Date: March 30, 2023 Subjective Pt seen in follow up of rib fractures, + RSV, + Influenza A Overnight had a fall from recliner chair - see alteration tailor apprentice note Currently sitting up in bed in NAD, on 2L of suppl. o2 Says he feels congested, had URI symptoms for some time Denies chest pain, palpitations, shortness of breath. denies abd. pain. Review of Systems Review of Systems: All systems reviewed & are unremarkable except as noted in Subjective Physical Exam Physical Exam: Constitutional: + obese M in NAD Eyes: PERRL, conjunctiva e normal, anicteri c sclerae ENMT: external ear and n ose normal, oropha rynx normal Respiratory: normal respiratory effort; no respir atory distress Au scultation: +rhonc hi+ diminished alex g sounds, no wheez ing Cardiovascular: Rate/Rhythm: regul ar rate and regula r rhythm Vessels: normal peripheral pulses Extremiti es: trace LE edema Gastrointestinal ( Abdomen): normal bowel sound s, soft, nontender Musculoskeletal: moves extremities Skin: no rashes, warm an d dry Neurologic: PERRL, EOMI, no fa ce palsy, no dysar thria, moves extre mities Psychiatric: A+Ox3, euthymic af fect Results & Data Results & Data Vital Signs (Past 12 Hours) Vital Signs Temp Pulse Pulse Resp BP BP Pulse Ox 03/31/23 12:11 36.4 C L 69 20 176/87 H 94 03/31/23 08:35 36.4 C 65 16 170/99 H 96 03/31/23 07:37 03/31/23 06:00 66 03/31/23 05:50 36.4 C 69 20 180/90 H 97 03/31/23 04:52 36.4 C L 75 16 179/100 H 97 O2 Del Method O2 Flow Rate 03/31/23 12:11 Room Air 03/31/23 08:35 Nasal Cannula 2 03/31/23 07:37 Nasal Cannula 2 03/31/23 06:00 03/31/23 05:50 Nasal Cannula 2 03/31/23 04:52 Room Air 2 Laboratory Results 03/31/23 03/31/23 03/31/23 Range/Units 07:23 06:25 06:01 WBC (4.8-10.8) K/ul RBC (4.70-6.10) M/uL Hgb (14.0-18.0) g/dl Hct (42.0-52.0) % MCV (80.0-100.0) fL MCH (25.0-34.0) pg MCHC (32.0-36.0) g/dL RDW Std Deviation (36.4-46.3) fL RDW Coeff of Rosas (11.5-14.5) % Plt Count (130-400) K/uL MPV (9.4-12.4) fL Immature Gran % (Auto) % Neut % (Auto) % Lymph % (Auto) % Ramsey % (Auto) % Eos % (Auto) % Baso % (Auto) % Neut # (Auto) (1.40-6.50) K/uL Lymph # (Auto) (1.20-3.40) K/uL Ramsey # (Auto) (0.11-0.59) K/uL Eos # (Auto) (0.00-0.50) K/uL Baso # (Auto) (0.00-0.20) K/uL Immature Gran # (Auto) (0.01-0.20) K/uL Sodium 128 L (136-145) mmol/L Potassium 3.7 (3.5-5.1) mmol/L Chloride 95 L (98-107) mmol/L Carbon Dioxide 24 (21-32) mmol/L Anion Gap 9 (3-11) BUN 13 (6-23) mg/dl Creatinine 0.76 (0.6-1.4) mg/dl Est Cr Clr Drug Dosing 131.0 ml/min Est GFR ( Amer) 111.0 ml/min Est GFR (Non-Af Amer) 95.7 ml/min BUN/Creatinine Ratio 17.1 (10-20) Glucose 126 H (70-99(Fasting)) mg/dl POC Glucose 128 H (70-99) mg/dl Osmolality 268 L (280-300) mOsm/kg Calcium 8.7 (8.6-10.3) mg/dl Magnesium 2.0 (1.7-2.4) mg/dl Total Bilirubin 0.7 (0.2-1.0) mg/dl AST 52 H (13-39) U/L ALT 98 H (7-52) U/L Alkaline Phosphatase 119 H (34-104) U/L Ammonia 47.0 (18-72) umol/L Total Protein 6.9 (6.0-8.3) gm/dl Albumin 4.1 (3.4-5.0) gm/dl Globulin 2.8 (2.5-4.0) gm/dl Albumin/Globulin Ratio 1.5 (0.9-2) TSH 2.885 (0.300-4.500) uIu/ml Blood Type A Positive Antibody Screen NEGATIVE 03/31/23 Range/Units 06:00 WBC 8.51 (4.8-10.8) K/ul RBC 4.68 L (4.70-6.10) M/uL Hgb 13.8 L (14.0-18.0) g/dl Hct 39.3 L (42.0-52.0) % MCV 84.0 (80.0-100.0) fL MCH 29.5 (25.0-34.0) pg MCHC 35.1 (32.0-36.0) g/dL RDW Std Deviation 42.0 (36.4-46.3) fL RDW Coeff of Rosas 13.8 (11.5-14.5) % Plt Count 241 (130-400) K/uL MPV 10.8 (9.4-12.4) fL Immature Gran % (Auto) 0.8 % Neut % (Auto) 71.4 % Lymph % (Auto) 14.2 % Ramsey % (Auto) 12.8 % Eos % (Auto) 0.6 % Baso % (Auto) 0.2 % Neut # (Auto) 6.07 (1.40-6.50) K/uL Lymph # (Auto) 1.21 (1.20-3.40) K/uL Ramsey # (Auto) 1.09 H (0.11-0.59) K/uL Eos # (Auto) 0.05 (0.00-0.50) K/uL Baso # (Auto) 0.02 (0.00-0.20) K/uL Immature Gran # (Auto) 0.07 (0.01-0.20) K/uL Sodium (136-145) mmol/L Potassium (3.5-5.1) mmol/L Chloride (98-107) mmol/L Carbon Dioxide (21-32) mmol/L Anion Gap (3-11) BUN (6-23) mg/dl Creatinine (0.6-1.4) mg/dl Est Cr Clr Drug Dosing ml/min Est GFR ( Amer) ml/min Est GFR (Non-Af Amer) ml/min BUN/Creatinine Ratio (10-20) Glucose (70-99(Fasting)) mg/dl POC Glucose (70-99) mg/dl Osmolality (280-300) mOsm/kg Calcium (8.6-10.3) mg/dl Magnesium (1.7-2.4) mg/dl Total Bilirubin (0.2-1.0) mg/dl AST (13-39) U/L ALT (7-52) U/L Alkaline Phosphatase (34-104) U/L Ammonia (18-72) umol/L Total Protein (6.0-8.3) gm/dl Albumin (3.4-5.0) gm/dl Globulin (2.5-4.0) gm/dl Albumin/Globulin Ratio (0.9-2) TSH (0.300-4.500) uIu/ml Blood Type Antibody Screen Medications Administered Current Inpatient Medications Acetaminophen (Acetaminophen 500 Mg Tab) 1,000 mg PO Q8H [facility] Stop: 04/29/23 17:59 Last Admin: 03/31/23 10:34 Dose: Not Given Bacitracin (Bacitracin Oint 14 Gm Tube) 1 appln EXT BID PRN PRN Reason: skin Stop: 04/29/23 21:06 Enoxaparin Sodium (Enoxaparin Inj 40 Mg/0.4 Ml Syr) 40 mg SQ Q24H [facility]IMAL Stop: 04/29/23 21:59 Last Admin: 03/30/23 22:12 Dose: 40 mg Guaifenesin (Guaifenesin 600 Mg Tabcr) 600 mg PO Q12 [facility]IMAL Stop: 04/30/23 13:44 Sodium Chloride (Nss) 1,000 mls @ 100 mls/hr IV .Q10H [facility] Stop: 04/29/23 16:14 Last Infusion: 03/31/23 06:27 Dose: 0 mls/hr Ampicillin Sodium/Sulbactam Sodium 3,000 mg/ Sodium Chloride 100 mls @ 200 mls/hr IV Q6H [facility] Stop: 04/07/23 07:59 Last Admin: 03/31/23 13:37 Dose: 200 mls/hr Lidocaine (Lidocaine 5% 1 Patch) 1 patch TD HS [facility] Stop: 04/29/23 17:59 Last Admin: 03/30/23 17:55 Dose: 1 patch Miscellaneous (Remove Lidoderm Patch) 1 each N/A DAILY@0900 [facility] Stop: 04/30/23 08:59 Last Admin: 03/31/23 08:21 Dose: 1 each Morphine Sulfate (Morphine Sulfate 4 Mg/Ml 1 Ml Carp\Vial) 4 mg IV Q3H PRN PRN Reason: Pain (6,7,8,9,10) Stop: 04/13/23 17:15 Last Admin: 03/31/23 13:30 Dose: 4 mg Oxycodone HCl (Oxycodone Hcl Ir 5 Mg Tab (Immediate Release)) 5 mg PO Q4H PRN PRN Reason: MODERATE Pain (4,5,6) & Pre PT Stop: 04/13/23 17:15 Last Admin: 03/31/23 01:06 Dose: 5 mg Pantoprazole Sodium (Pantoprazole 40 Mg Tab) 40 mg PO QAM [facility] Stop: 04/30/23 13:44
[2023-03-31] MEDS ORDERED: FUROSEMIDE INJ 20 MG/2 ML VIAL IV ONE ×2 (13:42→18:00)
[2023-03-31] MEDS ORDERED: POTASSIUM CHLORIDE CRTAB 20 MEQ TABCR PO STA (13:42)
[2023-03-31] MEDS: guaiFENesin 600 MG TABCR PO SCH ×2 (14:50→19:55)
[2023-03-31] MEDS: PANTOprazole 40 MG TAB PO SCH (14:50)
--- NOTE | 2023-03-31 15:58 | XRay Report ---
XR chest 1V portable HISTORY: Shortness of breath. congestion, +RSV,+fluA COMPARISON: Chest CTA 03/30/2023. FINDINGS: Perihilar interstitial/vascular thickening which has progressed. This suggests mild pulmona ry edema. No pneumothorax. Trace bilateral pleural effusions. The heart is enlarged. There are low paramjit ng volumes. Slightly rotated study. Acute right-sided rib fractures again noted. IMPRESSION: 1. Cardiomegaly and mild interstitial pulmonary edema. This has progressed in the interval. 2. Acute right-sided rib fractures again noted. No pneumothorax. ACT 112: Negative or not required by law. Electronically signed by: Wale Castro M.D. 03/31/2023 3:56 PM
[2023-03-31 17:09] LABS: Appearance Urine Clear (Clear); Bilirubin Urine Negative (Negative); Blood Urine Negative (Negative); Color Urine Yellow; Glucose Urine UA Negative (Negative); Ketones Urine 1+ (Negative); Leukocyte Esterase Urine Negative (Negative); Nitrite Urine Negative (Negative); Protein Urine Negative (Negative); Specific Gravity Urine 1.015 (1.000-1.030); Urobilinogen Urine Positive (Negative); pH Urine 5.5 (4.5-7.5)
[2023-03-31] MEDS: LIDOCAINE 5% 1 PATCH TD SCH (19:54)
--- NOTE | 2023-03-31 20:37 | Oral/Maxillofacial Consult ---
Date of Consultation March 31, 2023 Assessment & Plan (1) Nasal bone fracture: (2) Contusion of face, scalp and neck: History of Present Illness Attending Physician: Orlando Sotelo MD History of Present Illness Patient was referred for evaluation of nasal trauma. The injury happened on ---This morning when patient fell forward as the result of a syncopal event from the chair besides his bed. CC--I was told my nose is fractured, I have no problems with congestion or bleeding. My breathing is effected from the rib fractures from my fall in [place]. Facial exam: Contusion right forehead -from fall in [place]-last week No swelling noted lateral nose, slight swelling bridge of the nose Septum--looks to be midline w/o deviation Mucosal tissue not swollen Sinus--generalized congestion but not accident related No Dental issue as all front teeth stable. Eye: PERRLA, EOM -all WNL, no visio issues Nasal exam: septum midline, no hyperemic mucosa, minimal congestion, good air flow, no bleeding, small contusion over the nasal bridge CT scan--after trauma very slight insignificant nasal bone fractures difficult to determine if this is old vs new. Plan: Given that there minimal pain and swelling to the lateral nose it is doubtful that the nasal fractures seen on the CT are acute. Dalton has no pain upon palpation and the nasal bone are very solid. Surgical intervention for a closed reduction is not indicated or needed. Dalton does not feel his nose looks much different and has no other complaints regarding his nose. Overall I see no function problems or cosmetic changes due to recent trauma. No surgical intervention needed. Allergies Allergy/AdvReac Type Severity Reaction Status Date / Time No Known Allergies Allergy Unknown Verified 03/30/23 14:56 Home Medications Medication Instructions Recorded Confirmed Type acetaminophen 500 mg tablet 500 mg PO Q6H PRN PAIN/FEVER 03/30/23 03/30/23 History ibuprofen 200 mg tablet 200 mg PO Q6H PRN PAIN/FEVER 03/30/23 03/30/23 History latanoprost 0.005 % eye drops 1 drp OPB HS 03/30/23 03/30/23 History Patient History Medical History No significant medical problems Family history of colon cancer Family history of skin cancer Mother Surgical History History of cholecystectomy Social History Smoking Status: Never smoker Hx Alcohol Use: No Hx Substance Use: No Preferred Language: Luxembourgish Communication Ability: Effective Geophysical Computer Required: No Beliefs That Will Affect Care: None Current Living Situation: Spouse Feels Safe at Home: Yes Safety Concerns: Feels Safe At This Time Assistive Devices: None Results & Data Vital Signs (Past 12 Hours) Vital Signs Temp Pulse Pulse Resp BP Pulse Ox O2 Del Method 03/31/23 19:00 36.8 C 71 20 175/94 H 96 Room Air 03/31/23 15:27 36.6 C 67 18 171/89 H 95 Room Air 03/31/23 14:12 69 03/31/23 12:11 36.4 C L 69 20 176/87 H 94 Room Air 03/31/23 08:35 36.4 C 65 16 170/99 H 96 Nasal Cannula O2 Flow Rate 03/31/23 19:00 03/31/23 15:27 03/31/23 14:12 03/31/23 12:11 03/31/23 08:35 2 PG Care Time/CCT Total # of Minutes Spent Total Time Spent with Patient: Total time spent is greater than 50% in coordination of care (as documented) at patient's floor/unit and/or counseling patient: Coding Level of Care Code 85990 IN/OBS CONSULT LVL 2,35M Diagnoses Closed fracture of nasal bone, initial encounter S02.2XXA Encounter type: initial encounter Fracture type: closed Contusion of face, scalp and neck, initial encounter S00.83XA; S00.03XA; S10.93XA Encounter type: initial encounter (1) Nasal bone fracture Encounter type: initial encounter Fracture type: closed Qualified Code(s): S02.2XXA - Fracture of nasal bones, initial encounter for closed fracture (2) Contusion of face, scalp and neck Encounter type: initial encounter Qualified Code(s): S00.83XA - Contusion of other part of head, initial encounter; S00.03XA - Contusion of scalp, initial encounter; S10.93XA - Contusion of unspecified part of neck, initial encounter
[2023-04-01] MEDS: HYDROcodone/HOMATROPINE SYRUP 5MG/1.5MG 5ML UDP PO PRN ×2 (01:13→10:50)
[2023-04-01] MEDS: UNASYN 3000MG / NS q6h IV SCH ×4 (01:32→22:17)
[2023-04-01] MEDS: ACETAMINOPHEN 500 MG TAB PO SCH ×3 (01:32→17:12)
[2023-04-01] MEDS: MoRPHine SULFATE 4 MG/ML 1 ML CARP\\VIAL IV PRN (02:04)
[2023-04-01 07:33] LABS: Hematocrit (blood only) 35.8 % (42.0-52.0); Hemoglobin 12.7 g/dl (14.0-18.0); Mean Corpuscular Hemoglobin 29.3 pg (25.0-34.0); Mean Corpuscular Hgb Conc 35.5 g/dL (32.0-36.0); Mean Corpuscular Volume 82.7 fL (80.0-100.0); Mean Platelet Volume 10.6 fL (9.4-12.4); Platelet Count 225 K/uL (130-400); RDW Coefficient of Variation 13.2 % (11.5-14.5); RDW Standard Deviation 40.2 fL (36.4-46.3); Red Blood Count 4.33 M/uL (4.70-6.10); White Blood Count 7.77 K/ul (4.8-10.8)
[2023-04-01 07:46] LABS: BUN Creatinine Ratio 15.6 (10-20); Calcium 8.5 mg/dl (8.6-10.3); Creatinine Clr Calc Pharmacy 155.5 ml/min; Est GFR (African American) 119.1 ml/min; Est GFR (Non-African American) 102.7 ml/min; Magnesium 1.9 mg/dl (1.7-2.4); Phosphorus 3.4 mg/dl (2.5-4.9); Potassium 3.7 mmol/L (3.5-5.1)
--- NOTE | 2023-04-01 08:49 | XRay Report ---
XR chest 1V portable CLINICAL HISTORY: follow up pulm. vasc congestion COMPARISON STUDY: Chest CT March 30, 2023. Chest radiograph March 31, 2023. FINDINGS: Multiple acute right-sided rib fractures are again noted. There is no pneumothorax. There i s cardiomegaly. Interstitial thickening has resolved. Right infrahilar opacity persists. IMPRESSION: 1. Cardiomegaly. Interval resolution of pulmonary edema. 2. Persistent right infrahilar opacity which could reflect an infectious process or atelectasis. 3. Redemonstration of multiple acute right rib fractures. No pneumothorax. ACT 112: Negative or not required by law. Electronically signed by: Larry Grissom M.D. 04/01/2023 8:46 AM
[2023-04-01] MEDS: guaiFENesin 600 MG TABCR PO SCH ×2 (09:13→22:18)
[2023-04-01] MEDS: PANTOprazole 40 MG TAB PO SCH (09:13)
[2023-04-01] MEDS ORDERED: POTASSIUM CHLORIDE CRTAB 20 MEQ TABCR PO STA (09:51)
[2023-04-01] MEDS ORDERED: FUROSEMIDE 40 MG/4 ML VIAL IV ONE (09:51)
--- NOTE | 2023-04-01 10:11 | Nephrology Consultation ---
Date of Consultation April 01, 2023 Assessment & Plan (1) Hyponatremia: (2) Influenza A: (3) RSV infection: Mild hyponatremia in a patient who had influenza A as well as RSV infection and then sustained a fall from syncopal event. He currently has significant pain from the rib fracture. 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 This is not a case of volume depletion needing IV fluid and as a result sodium and chloride infusion has not made any difference. Urine awesome was inappropriately high at 400+ urine sodium was 100. This is consistent with SIADH and needs to be treated accordingly. He does have some edema at this time Will manage him with fluid restriction of 1500 mL/day. Give Lasix 40 mg IV twice daily with potassium 40 twice daily Lasix should lower the urine osmolarity and thereby raise serum We can also add urea 15 g twice daily for now He does not need salt tablet given high blood pressure as well as some fluid retention. Labs can be done daily at this point Thanks for the consult Plan Time spent 55 minutes History of Present Illness Reason for Consultation: Hyponatremia Attending Physician: Orlando Sotelo MD History of Present Illness 67-year-old male who presented to the hospital 2 days ago after fall from syncope. He sustained multiple rib fractures as well as contusion of the face scalp and neck. He was also found to be positive for RSV and influenza. sodium was low at 127. Since being admitted he has received normal saline but that has not raise the serum sodium. He also got 1 dose of Lasix 10 mg IV yesterday. Urine awesome was inappropriately high at 475 and urine sodium was 100. Patient is drinking a lot of liquid but barely eating any solid food. He is complaining of a lot of pain when he takes deep breath as well as occasional nausea. However no vomiting abdominal pain or diarrhea. Review of system-----as detailed in HPI. Unless stated otherwise 12 system reviewed and negative Physical examination Middle-aged white male who is not in any respiratory distress. He is awake alert oriented x 3 and was able to give detailed account of his medical problem Mucous membrane is moist neck is supple no JVD Chest bilateral clear to auscultation CVS S1-S2 regular abdomen is soft nontender obese extremities shows trace edema Skin--contusion around the head and neck area Allergies Allergy/AdvReac Type Severity Reaction Status Date / Time No Known Allergies Allergy Unknown Verified 12/19/23 14:56 Home Medications Medication Instructions Recorded Confirmed Type acetaminophen 500 mg tablet 500 mg PO Q6H PRN PAIN/FEVER 03/30/23 03/30/23 History ibuprofen 200 mg tablet 200 mg PO Q6H PRN PAIN/FEVER 03/30/23 03/30/23 History latanoprost 0.005 % eye drops 1 drp OPB HS 03/30/23 03/30/23 History Patient History Medical History No significant medical problems Family history of colon cancer Family history of skin cancer Mother Surgical History History of cholecystectomy Social History Smoking Status: Never smoker Hx Alcohol Use: No Hx Substance Use: No Preferred Language: Macedonian Communication Ability: Effective Licensed Nurse Practitioner Required: No Beliefs That Will Affect Care: None Current Living Situation: Spouse Feels Safe at Home: Yes Safety Concerns: Feels Safe At This Time Assistive Devices: None Results & Data Vital Signs (Past 12 Hours) Vital Signs Temp Pulse Pulse Resp BP BP Pulse Ox 04/01/23 07:44 36.4 C 61 18 157/88 H 93 04/01/23 06:00 61 04/01/23 03:00 36.6 C 59 L 20 147/77 H 93 03/31/23 22:48 O2 Del Method 04/01/23 07:44 Room Air 04/01/23 06:00 04/01/23 03:00 Room Air 03/31/23 22:48 Room Air
[2023-04-01] MEDS: UREA (UREA-NA) 15 GM PACK PO SCH ×2 (10:50→22:17)
--- NOTE | 2023-04-01 10:52 | Hospitalist Progress Note ---
Date of Service April 01, 2023 Assessment & Plan (1) Multiple fractures of ribs of right side: Plan: Admitted to [facility] with telemetry Patient presenting from home with reports of severe right-sided rib pain. Was in [place] last week for his son's wedding and suffered a syncopal event. Was evaluated in the ED and per patient report, had unremarkable head, neck, chest CT. Was diagnosed with RSV. In the ED here, CT chest shows right fifth through ninth acute nondisplaced rib fractures, seventh and eighth ribs have anterior and posterior lateral fractures. Patient became mildly hypoxic after receiving IV pain medication, satting well on 2 L of oxygen via nasal cannula Pt still currently on RA vs 2L - some rhonchi on phys. exam yesterday, and pt reported feeling congested - CXR on 03/31 w/ pulm. vasc. congestion Pain control with scheduled Tylenol, Lidoderm patch, PRN oxycodone and IV morphine for breakthrough pain Incentive spirometer Overnight pt had a fall from chair - see finance effectiveness manager note for detail no LOC Traumatic facial trauma CT head 1. No acute intracranial findings. 2. No calvarial fracture. 3. Age indeterminate mildly displaced depressed bilateral nasal bone fractures. 4. Findings suggestive of acute sinusitis, as described above. CT maxillofacial 1. Age indeterminate mildly displaced mildly depressed bilateral nasal bone fractures. No additional facial fractures. 2. Findings suggestive of acute sinusitis, as described above. CT cervical spine No acute cervical spine fracture or subluxation. Mildly displaced mildly depressed bilateral nasal bone fractures - Dr. Raygoza consulted - no need for any surgery - cont. unasyn for now (2) Pneumonitis: (3) Influenza A: (4) RSV infection: Plan: Bio fire + for RSV and influenza A CTA chest shows patchy and linear densities within the lung bases, greater on th e right No leukocytosis, afebrile, procalcitonin WNL Likely secondary to atelectasis from rib fractures Received IV Zosyn in the ED, cont. w/ unasyn for sinusitis (pt also had facial trauma) Given duration of symptoms, Tamiflu not indicated for influenza A Continue supportive care with Mucinex, incentive spirometer, flutter valve CXR on 03/31 w/ pulm. vasc. congestion, received some IVF on admission. IVF were stopped and small dose iv lasic was given Pt is breathing better today (04/01) and today CXR much improved - pulm. vasc. 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 vasc. congestion yesterday and received small dose IV lasix - pt feels much better today, says he feels less congested and cough has improved CXR today obtained and pulm vasc congestion has resolved Was seen by Dr. Raygoza - no need for surgery for nasal fractures Denies chest pain, palpitations, shortness of breath. denies abd. pain, n/v Nephrology consulted for hyponatremia and discussed with - will give iv lasix urea, FR - cont. to monitor Review of Systems Review of Systems: All systems reviewed & are unremarkable except as noted in Subjective Physical Exam Physical Exam: Constitutional: + obese M in NAD Eyes: PERRL, conjunctiva e normal, anicteri c sclerae ENMT: external ear and n ose normal, oropha rynx normal Respiratory: normal respiratory effort; no respir atory distress Au scultation: dimini shed lung sounds, no wheezing Cardiovascular: Rate/Rhythm: regul ar rate and regula r rhythm Vessels: normal peripheral pulses Extremiti es: trace LE edema Gastrointestinal ( Abdomen): normal bowel sound s, soft, nontender Musculoskeletal: moves extremities Skin: no rashes, warm an d dry Neurologic: PERRL, EOMI, no fa ce palsy, no dysar thria, moves extre mities Psychiatric: A+Ox3, euthymic af fect Results & Data Results & Data Vital Signs (Past 12 Hours) Vital Signs Temp Pulse Pulse Resp BP BP Pulse Ox 04/01/23 07:44 36.4 C 61 18 157/88 H 93 04/01/23 07:31 04/01/23 06:00 61 04/01/23 03:00 36.6 C 59 L 20 147/77 H 93 03/31/23 22:48 O2 Del Method 04/01/23 07:44 Room Air 04/01/23 07:31 Room Air 04/01/23 06:00 04/01/23 03:00 Room Air 03/31/23 22:48 Room Air Laboratory Results 04/01/23 03/31/23 Range/Units 06:48 16:40 WBC 7.77 (4.8-10.8) K/ul RBC 4.33 L (4.70-6.10) M/uL Hgb 12.7 L (14.0-18.0) g/dl Hct 35.8 L (42.0-52.0) % MCV 82.7 (80.0-100.0) fL MCH 29.3 (25.0-34.0) pg MCHC 35.5 (32.0-36.0) g/dL RDW Std Deviation 40.2 (36.4-46.3) fL RDW Coeff of Rosas 13.2 (11.5-14.5) % Plt Count 225 (130-400) K/uL MPV 10.6 (9.4-12.4) fL Sodium 127 L (136-145) mmol/L Potassium 3.7 (3.5-5.1) mmol/L Chloride 92 L (98-107) mmol/L Carbon Dioxide 28 (21-32) mmol/L Anion Gap 7 (3-11) BUN 10 (6-23) mg/dl Creatinine 0.64 (0.6-1.4) mg/dl Est Cr Clr Drug Dosing 155.5 ml/min Est GFR ( Amer) 119.1 ml/min Est GFR (Non-Af Amer) 102.7 ml/min BUN/Creatinine Ratio 15.6 (10-20) Glucose 110 H (70-99(Fasting)) mg/dl Calcium 8.5 L (8.6-10.3) mg/dl Phosphorus 3.4 (2.5-4.9) mg/dl Magnesium 1.9 (1.7-2.4) mg/dl Urine Color Yellow Urine Appearance Clear (Clear) Urine pH 5.5 (4.5-7.5) Ur Specific Hunt 1.015 (1.000-1.030) Urine Protein Negative (Negative) Urine Glucose (UA) Negative (Negative) Urine Ketones 1+ H (Negative) Urine Blood Negative (Negative) Urine Nitrite Negative (Negative) Urine Bilirubin Negative (Negative) Urine Urobilinogen Positive H (Negative) Ur Leukocyte Esterase Negative (Negative) Urine Osmolality 488 L (500-800) mOsm/kg Ur Random Sodium 100 mmol/L Medications Administered Current Inpatient Medications Acetaminophen (Acetaminophen 500 Mg Tab) 1,000 mg PO Q8H BIMAL Stop: 04/29/23 17:59 Last Admin: 04/01/23 09:12 Dose: 1,000 mg Bacitracin (Bacitracin Oint 14 Gm Tube) 1 appln EXT BID PRN PRN Reason: skin Stop: 04/29/23 21:06 Enoxaparin Sodium (Enoxaparin Inj 40 Mg/0.4 Ml Syr) 40 mg SQ Q24H BIMAL Stop: 04/29/23 21:59 Last Admin: 03/30/23 22:12 Dose: 40 mg Furosemide (Furosemide 40 Mg/4 Ml Vial) 40 mg IV BID [facility] Stop: 05/01/23 20:59 Guaifenesin (Guaifenesin 600 Mg Tabcr) 600 mg PO Q12 [facility] Stop: 04/30/23 13:44 Last Admin: 04/01/23 09:13 Dose: 600 mg Hydrocodone Bit/Homatropine Methylb (Hydrocodone/Homatropine Syrup 5mg/1.5mg 5ml Udp) 5 ml PO Q6H PRN PRN Reason: Cough Stop: 04/15/23 00:45 Last Admin: 04/01/23 01:13 Dose: 5 ml Ampicillin Sodium/Sulbactam Sodium 3,000 mg/ Sodium Chloride 100 mls @ 200 mls/hr IV Q6H [facility]AL Stop: 04/07/23 07:59 Last Infusion: 04/01/23 08:06 Dose: Infused Lidocaine (Lidocaine 5% 1 Patch) 1 patch TD HS BIMAL Stop: 04/29/23 17:59 Last Admin: 03/31/23 19:54 Dose: 1 patch Miscellaneous (Remove Lidoderm Patch) 1 each N/A DAILY@0900 [facility] Stop: 04/30/23 08:59 Last Admin: 04/01/23 09:14 Dose: 1 each Morphine Sulfate (Morphine Sulfate 4 Mg/Ml 1 Ml Carp\Vial) 4 mg IV Q3H PRN PRN Reason: Pain (6,7,8,9,10) Stop: 04/13/23 17:15 Last Admin: 04/01/23 02:04 Dose: 4 mg Oxycodone HCl (Oxycodone Hcl Ir 5 Mg Tab (Immediate Release)) 5 mg PO Q4H PRN PRN Reason: MODERATE Pain (4,5,6) & Pre PT Stop: 04/13/23 17:15 Last Admin: 03/31/23 01:06 Dose: 5 mg Pantoprazole Sodium (Pantoprazole 40 Mg Tab) 40 mg PO QAM [facility] Stop: 04/30/23 13:44 Last Admin: 04/01/23 09:13 Dose: 40 mg Potassium Chloride (Potassium Chloride Crtab 20 Meq Tabcr) 40 meq PO BID [facility] Stop: 05/01/23 20:59 Urea (Urea (Urea-Na) 15 Gm Pack) 15 gm PO BID [facility] Stop: 05/01/23 10:29
[2023-04-01] MEDS: ALBUT/IPRATROP 3MG/0.5MG NEB 3 ML VIAL NEB PRN ×2 (11:13→14:40)
[2023-04-01] MEDS: POTASSIUM CHLORIDE CRTAB 20 MEQ TABCR PO SCH (22:17)
[2023-04-01] MEDS: FUROSEMIDE 40 MG/4 ML VIAL IV SCH (22:18)
[2023-04-01] MEDS: LIDOCAINE 5% 1 PATCH TD SCH (22:18)
[2023-04-02] MEDS: MoRPHine SULFATE 4 MG/ML 1 ML CARP\\VIAL IV PRN (02:24)
[2023-04-02] MEDS: ACETAMINOPHEN 500 MG TAB PO SCH ×3 (02:25→17:21)
[2023-04-02] MEDS: UNASYN 3000MG / NS q6h IV SCH ×4 (02:26→21:18)
--- NOTE | 2023-04-02 06:19 | Electrocardiogram Report ---
Test Reason : Blood Pressure : / mmHG Vent. Rate : 073 BPM Atrial Rate : 073 BPM P-R Int : 164 ms QRS Dur : 090 ms QT Int : 468 ms P-R-T Axes : 040 -35 057 degrees QTc Int : 515 ms Poor data quality, interpretation may be adversely affected Normal sinus rhythm Possible Left atrial enlargement Left axis deviation Nonspecific T wave abnormality Abnormal ECG When compared with ECG of 04-MAR-2004 06:56, Nonspecific T wave abnormality now evident in Lateral leads QT has lengthened Confirmed by Jaciel Mandel ([id number]) on 04/02/2023 6:18:44 AM Referred By: REFERRED SELF Confirmed By:Jaciel Mandel
[2023-04-02 07:04] LABS: Hematocrit (blood only) 41.5 % (42.0-52.0); Hemoglobin 14.2 g/dl (14.0-18.0); Mean Corpuscular Hemoglobin 29.1 pg (25.0-34.0); Mean Corpuscular Hgb Conc 34.2 g/dL (32.0-36.0); Mean Platelet Volume 10.5 fL (9.4-12.4); Platelet Count 268 K/uL (130-400); RDW Coefficient of Variation 13.6 % (11.5-14.5); RDW Standard Deviation 42.2 fL (36.4-46.3); Red Blood Count 4.88 M/uL (4.70-6.10); White Blood Count 7.75 K/ul (4.8-10.8)
[2023-04-02 07:25] LABS: BUN Creatinine Ratio 23.2 (10-20); Calcium 9.2 mg/dl (8.6-10.3); Creatinine Clr Calc Pharmacy 121.4 ml/min; Est GFR (African American) 107.6 ml/min; Est GFR (Non-African American) 92.8 ml/min; Phosphorus 3.8 mg/dl (2.5-4.9)
[2023-04-02] MEDS: POTASSIUM CHLORIDE CRTAB 20 MEQ TABCR PO SCH ×2 (08:34→21:20)
[2023-04-02] MEDS: UREA (UREA-NA) 15 GM PACK PO SCH ×2 (08:34→21:20)
[2023-04-02] MEDS: guaiFENesin 600 MG TABCR PO SCH ×2 (08:35→21:19)
[2023-04-02] MEDS: FUROSEMIDE 40 MG/4 ML VIAL IV SCH ×2 (08:35→21:19)
[2023-04-02] MEDS: PANTOprazole 40 MG TAB PO SCH (08:35)
--- NOTE | 2023-04-02 08:46 | Hospitalist Progress Note ---
Date of Service April 02, 2023 Assessment & Plan (1) Multiple fractures of ribs of right side: Plan: Admitted to [facility] with telemetry Patient presenting from home with reports of severe right-sided rib pain. Was in [place] last week for his son's wedding and suffered a syncopal event. Was evaluated in the ED and per patient report, had unremarkable head, neck, chest CT. Was diagnosed with RSV. In the ED here, CT chest shows right fifth through ninth acute nondisplaced rib fractures, seventh and eighth ribs have anterior and posterior lateral fractures. Patient became mildly hypoxic after receiving IV pain medication, satting well on 2 L of oxygen via nasal cannula Next day pt was still on 2L - w/ +rhonchi on phys. exam and pt reported feeling congested - CXR on 03/31 w/ pulm. vasc. congestion Pain control with scheduled Tylenol, Lidoderm patch, PRN oxycodone and IV morphine for breakthrough pain Incentive spirometer Overnight pt had a fall from chair - see reception interviewer note for detail no LOC Traumatic facial trauma CT head 1. No acute intracranial findings. 2. No calvarial fracture. 3. Age indeterminate mildly displaced depressed bilateral nasal bone fractures. 4. Findings suggestive of acute sinusitis, as described above. CT maxillofacial 1. Age indeterminate mildly displaced mildly depressed bilateral nasal bone fractures. No additional facial fractures. 2. Findings suggestive of acute sinusitis, as described above. CT cervical spine No acute cervical spine fracture or subluxation. Mildly displaced mildly depressed bilateral nasal bone fractures - Dr. Raygoza consulted - no need for any surgery - cont. unasyn for now (2) Pneumonitis: (3) Influenza A: (4) RSV infection: Plan: Bio fire + for RSV and influenza A CTA chest shows patchy and linear densities within the lung bases, greater on the right No leukocytosis, afebrile, procalcitonin WNL Likely secondary to atelectasis from rib fractures Received IV Zosyn in the ED, cont. w/ unasyn for sinusitis (pt also had facial trauma) Given duration of symptoms, Tamiflu not indicated for influenza A Continue supportive care with Mucinex, incentive spirometer, flutter valve CXR on 03/31 w/ pulm. vasc. congestion, received some IVF on admission. IVF were stopped and small dose iv lasic was given Pt is breathing better today (12/21) and today CXR much improved - pulm. vasc. 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 Raygoza - no need for surgery for nasal fractures Denies chest pain, palpitations, shortness of breath. denies abd. pain, n/v Nephrology consulted for hyponatremia and discussed with - received iv lasix urea, FR - cont. to monitor Overall feeling much better -> likely will DC tmrw Pt's updated over the phone (at the bedside) Review of Systems Review of Systems: All systems reviewed & are unremarkable except as noted in Subjective Physical Exam Physical Exam: Constitutional: + obese M in NAD Eyes: PERRL, conjunctiva e normal, anicteri c sclerae ENMT: external ear and n ose normal, oropha rynx normal Respiratory: normal respiratory effort; no respir atory distress Au scultation: dimini shed lung sounds, no wheezing Cardiovascular: Rate/Rhythm: regul ar rate and regula r rhythm Vessels: normal peripheral pulses Extremiti es: trace LE edema Gastrointestinal ( Abdomen): normal bowel sound s, soft, nontender Musculoskeletal: moves extremities Skin: no rashes, warm an d dry Neurologic: PERRL, EOMI, no fa ce palsy, no dysar thria, moves extre mities Psychiatric: A+Ox3, euthymic af fect Results & Data Results & Data Vital Signs (Past 12 Hours) Vital Signs Temp Pulse Pulse Resp BP BP Pulse Ox 04/02/23 07:53 36.6 C 71 16 165/93 H 96 04/02/23 07:02 69 04/02/23 03:00 36.7 C 72 20 167/98 H 93 04/01/23 22:25 70 04/01/23 22:00 36.6 C 71 20 190/91 H 97 O2 Del Method 04/02/23 07:53 Room Air 04/02/23 07:02 04/02/23 03:00 Room Air 04/01/23 22:25 04/01/23 22:00 Room Air Laboratory Results 04/02/23 Range/Units 06:29 WBC 7.75 (4.8-10.8) K/ul RBC 4.88 (4.70-6.10) M/uL Hgb 14.2 (14.0-18.0) g/dl Hct 41.5 L (42.0-52.0) % MCV 85.0 (80.0-100.0) fL MCH 29.1 (25.0-34.0) pg MCHC 34.2 (32.0-36.0) g/dL RDW Std Deviation 42.2 (36.4-46.3) fL RDW Coeff of Rosas 13.6 (11.5-14.5) % Plt Count 268 (130-400) K/uL MPV 10.5 (9.4-12.4) fL Sodium 134 L (136-145) mmol/L Potassium 4.0 (3.5-5.1) mmol/L Chloride 94 L (98-107) mmol/L Carbon Dioxide 32 (21-32) mmol/L Anion Gap 8 (3-11) BUN 19 (6-23) mg/dl Creatinine 0.82 (0.6-1.4) mg/dl Est Cr Clr Drug Dosing 121.4 ml/min Est GFR ( Amer) 107.6 ml/min Est GFR (Non-Af Amer) 92.8 ml/min BUN/Creatinine Ratio 23.2 H (10-20) Glucose 107 H (70-99(Fasting)) mg/dl Calcium 9.2 (8.6-10.3) mg/dl Phosphorus 3.8 (2.5-4.9) mg/dl Magnesium 2.0 (1.7-2.4) mg/dl Medications Administered Current Inpatient Medications Acetaminophen (Acetaminophen 500 Mg Tab) 1,000 mg PO Q8H BIMAL Stop: 04/29/23 17:59 Last Admin: 04/02/23 08:34 Dose: 1,000 mg Albuterol (Albut/Ipratrop 3mg/0.5mg Neb 3 Ml Vial) 3 ml NEB QIDR PRN; Protocol PRN Reason: wheezing Stop: 05/01/23 10:51 Last Admin: 04/01/23 14:40 Dose: 3 ml Bacitracin (Bacitracin Oint 14 Gm Tube) 1 appln EXT BID PRN PRN Reason: skin Stop: 04/29/23 21:06 Enoxaparin Sodium (Enoxaparin Inj 40 Mg/0.4 Ml Syr) 40 mg SQ Q24H [facility]IMAL Stop: 04/29/23 21:59 Last Admin: 03/30/23 22:12 Dose: 40 mg Furosemide (Furosemide 40 Mg/4 Ml Vial) 40 mg IV BID [facility] Stop: 05/01/23 20:59 Last Admin: 04/02/23 08:35 Dose: 40 mg Guaifenesin (Guaifenesin 600 Mg Tabcr) 600 mg PO Q12 [facility] Stop: 04/30/23 13:44 Last Admin: 04/02/23 08:35 Dose: 600 mg Hydrocodone Bit/Homatropine Methylb (Hydrocodone/Homatropine Syrup 5mg/1.5mg 5ml Udp) 5 ml PO Q6H PRN PRN Reason: Cough Stop: 04/15/23 00:45 Last Admin: 04/01/23 10:50 Dose: 5 ml Ampicillin Sodium/Sulbactam Sodium 3,000 mg/ Sodium Chloride 100 mls @ 200 mls/hr IV Q6H [facility] Stop: 04/07/23 07:59 Last Admin: 04/02/23 08:34 Dose: 200 mls/hr Lidocaine (Lidocaine 5% 1 Patch) 1 patch TD HS [facility] Stop: 04/29/23 17:59 Last Admin: 04/01/23 22:18 Dose: 1 patch Miscellaneous (Remove Lidoderm Patch) 1 each N/A DAILY@0900 [facility] Stop: 04/30/23 08:59 Last Admin: 04/02/23 08:35 Dose: 1 each Morphine Sulfate (Morphine Sulfate 4 Mg/Ml 1 Ml Carp\Vial) 4 mg IV Q3H PRN PRN Reason: Pain (6,7,8,9,10) Stop: 04/13/23 17:15 Last Admin: 04/02/23 02:24 Dose: 4 mg Oxycodone HCl (Oxycodone Hcl Ir 5 Mg Tab (Immediate Release)) 5 mg PO Q4H PRN PRN Reason: MODERATE Pain (4,5,6) & Pre PT Stop: 04/13/23 17:15 Last Admin: 03/31/23 01:06 Dose: 5 mg Pantoprazole Sodium (Pantoprazole 40 Mg Tab) 40 mg PO QAM [facility] Stop: 04/30/23 13:44 Last Admin: 04/02/23 08:35 Dose: 40 mg Potassium Chloride (Potassium Chloride Crtab 20 Meq Tabcr) 40 meq PO BID [facility] Stop: 05/01/23 20:59 Last Admin: 04/02/23 08:34 Dose: 40 meq Urea (Urea (Urea-Na) 15 Gm Pack) 15 gm PO BID [facility] Stop: 05/01/23 10:29 Last Admin: 04/02/23 08:34 Dose: 15 gm
--- NOTE | 2023-04-02 09:36 | Nephrology Progress Note ---
Date of Service April 02, 2023 Assessment & Plan Admission and Anticipated Discharge Date Admission Date: March 30, 2023 Subjective Assessment & Plan (1) Hyponatremia: (2) Influenza A: (3) RSV infection: Mild hyponatremia in a patient who had influenza A as well as RSV infection and then sustained a fall from syncopal event. He currently has significant pain from the rib fracture. 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 This is not a case of volume depletion needing IV fluid and as a result sodium and chloride infusion has not made any difference. Urine awesome was inappropriately high at 400+ urine sodium was 100. This is consistent with SIADH and needs to be treated accordingly. He does have some edema at this time. Will manage him with fluid restriction of 1500 mL/day. Give Lasix 40 mg IV twice daily with potassium 40 twice daily na upto 134 with lasix Stop Lasix after tomorrow AM. na should be normal by then Will stop urea now Labs can be done daily at this point. Continue Current management for one more day and then Stop. S--No new issues. C/o Painful breathing. made 5700 ml urine and na went up to 134. BP still somewhat high. Physical examination Middle-aged white male who is not in any respiratory distress. He is awake alert oriented x 3 and was able to give detailed account of his medical problem Mucous membrane is moist neck is supple no JVD Chest bilateral clear to auscultation CVS S1-S2 regular abdomen is soft nontender obese extremities shows trace edema Skin--contusion around the head and neck area Results & Data Vital Signs (Past 12 Hours) Vital Signs Temp Pulse Pulse Resp BP BP Pulse Ox 04/02/23 07:53 36.6 C 71 16 165/93 H 96 04/02/23 07:02 69 04/02/23 03:00 36.7 C 72 20 167/98 H 93 04/01/23 22:25 70 04/01/23 22:00 36.6 C 71 20 190/91 H 97 O2 Del Method 04/02/23 07:53 Room Air 04/02/23 07:02 04/02/23 03:00 Room Air 04/01/23 22:25 04/01/23 22:00 Room Air
[2023-04-02] MEDS: LIDOCAINE 5% 1 PATCH TD SCH (21:20)
[2023-04-02] MEDS: ENOXAPARIN INJ 40 MG/0.4 ML SYR SQ SCH (22:06)
[2023-04-02] MEDS: oxyCODONE HCL IR 5 MG TAB (IMMEDIATE RELEASE) PO PRN (23:32)
[2023-04-03] MEDS: UNASYN 3000MG / NS q6h IV SCH ×2 (02:34→07:15)
[2023-04-03] MEDS: ACETAMINOPHEN 500 MG TAB PO SCH ×2 (02:35→09:16)
[2023-04-03 07:00] LABS: Calcium 9.4 mg/dl (8.6-10.3); Creatinine Clr Calc Pharmacy 105.9 ml/min; Est GFR (African American) 98.2 ml/min; Est GFR (Non-African American) 84.7 ml/min; Phosphorus 3.8 mg/dl (2.5-4.9); Potassium 3.9 mmol/L (3.5-5.1)
[2023-04-03] MEDS: UREA (UREA-NA) 15 GM PACK PO SCH (09:16)
[2023-04-03] MEDS: FUROSEMIDE 40 MG/4 ML VIAL IV SCH (09:16)
[2023-04-03] MEDS: guaiFENesin 600 MG TABCR PO SCH (09:16)
[2023-04-03] MEDS: POTASSIUM CHLORIDE CRTAB 20 MEQ TABCR PO SCH (09:17)
[2023-04-03] MEDS: PANTOprazole 40 MG TAB PO SCH (09:17)
--- NOTE | 2023-04-03 12:10 | Discharge Summary ---
Date of Service April 03, 2023 Admission HPI Per Admitting Provider 67-year-old male without significant past medical or surgical history who presents to the ED for evaluation of right rib pain. History is obtained from the patient and review of outpatient PCP records. Patient reports he developed cold-like symptoms last week. He then traveled to [place] on 03/24 for his son's wedding. Patient was at the rehearsal dinner on 03/26 when he states he started to feel worse. Reports that he felt lightheaded and like he needed to get some fresh air. Patient reports that he was walking down a long flight of steps and reached the door at the bottom and that his last thing he remembers. He woke up on the ground with EMS present. Patient did strike his head on the concrete. He was taken to a local ED. Patient reports he had a CT scan of his head, neck, chest. States that findings were unremarkable. He was also diagnosed with RSV. Patient attended his son's wedding on the following day and traveled back to [place] the next day. Patient reports ongoing severe right-sided rib pain. He has had a cough however it has been limited secondary to severe rib pain. States he has chest congestion however is unable to produce any mucus. Patient denies chest pain and shortness of breath. No further episodes of lightheadedness, dizziness, syncopal events. Reports a fair appetite however denies abdominal pain, nausea, vomiting, diarrhea. No urinary symptoms. In the ED, patient is hemodynamically stable. He did become mildly hypoxic after receiving IV pain medication. Currently saturating well on 2 L of oxygen via nasal cannula. Patient tested positive for RSV and influenza A. CTA chest negative for pulmonary embolism however shows right fifth through ninth nondisplaced rib fractures. The seventh and eighth ribs demonstrate both anterior and posterior lateral fractures. Patient was given IV fentanyl and IV Zosyn. Admission Exam Per Admitting Provider Constitutional: WD/WN, vitals as above + obese; no acute distress Eyes: PERRL, conjunctivae normal, anicteric sclerae ENMT: external ear and nose normal, oropharynx normal Respiratory: normal respiratory effort; no respiratory distress Auscultation: + diminished lung sounds Cardiovascular: Rate/Rhythm: regular rate and regular rhythm Vessels: normal peripheral pulses Extremities: no edema Gastrointestinal (Abdomen): normal bowel sounds, soft, nontender, no hepatosplenomegaly Musculoskeletal: no cyanosis or clubbing, extremities motor strength 5/5 Skin: no rashes, warm and dry Neurologic: PERRL, EOMI, accommodation nl, no face palsy, no dysarthria Psychiatric: A+Ox3, euthymic affect Principal Diagnosis Rib fractures, + RSV, + Influenza A Hyponatremia Discharge Exam Constitutional: + obese M in NAD Eyes: PERRL, conjunctivae normal, anicteric sclerae ENMT: external ear and nose normal, oropharynx normal Respiratory: normal respiratory effort; no respiratory distress Auscultation: diminished lung sounds, no wheezing Cardiovascular: Rate/Rhythm: regular rate and regular rhythm Vessels: normal peripheral pulses Extremities: trace LE edema Gastrointestinal (Abdomen): normal bowel sounds, soft, nontender Musculoskeletal: moves extremities Skin: no rashes, warm and dry Neurologic: PERRL, EOMI, no face palsy, no dysarthria, moves extremities Psychiatric: A+Ox3, euthymic affect Discharge Data Allergies Allergy/AdvReac Type Severity Reaction Status Date / Time No Known Allergies Allergy Unknown Verified 03/30/23 14:56 Consultations 03/30/23 15:06 ED Decision to Admit Stat 03/31/23 07:45 Consult Oromaxillofacial Surgery Routine 04/01/23 08:19 Consult Nephrology Routine Ordered Studies 03/30/23 13:04 CT angio chest PE protocol Stat FINDINGS: Mild chronic anterior wedging at T7. There are acute nondisplaced right fifth through ninth rib fractures. The seventh and eighth ribs demonstrate both anterior and posterior lateral fractures. Limited views the upper abdomen demonstrate a normal liver, spleen, and adrenal glands. Prior cholecystectomy. Mild circumferential thickening of the distal esophagus with a few prominent distal paraesophageal lymph nodes. Dominant paraesophageal lymph node on image 94 measures 13 x 7 mm. Scattered mediastinal lymph nodes measure subcentimeter in short axis diameter and therefore do not meet CT criteria for pathologic involvement. No hilar lymphadenopathy. Trace right pleural effusion is noted. No left pleural effusion. No pericardial effusion. The heart is borderline enlarged. Normal caliber thoracic aorta with no evidence for a dissection. Mild coronary artery calcifications are noted. No filling defects within the pulmonary arteries to suggest a pulmonary embolus. Mild bronchial wall thickening. No pneumothorax. A 3 mm subpleural nodule within the right lung apex on image 199. A few scattered patchy and linear densities within the lung bases most pronounced within the right lower lobe. This could represent a combination of subsegmental atelectasis and a low-grade pneumonitis. There is a 6 mm nodule within the right lower lobe on image 131. Trace mucoid material within the trachea and mainstem bronchi. IMPRESSION: 1. No evidence for a pulmonary embolus. 2. Right fifth through ninth acute rib fractures as described above. No pneumothorax. 3. Trace right pleural effusion. 4. A 6 mm indeterminate pulmonary nodule within the right lower lobe. Please refer to the chart below for recommended follow-up. 5. A few scattered patchy and linear densities within the lung bases most pronounced within the right lower lobe. This could represent a combination of subsegmental atelectasis and a low-grade pneumonitis possibly secondary to aspiration. 6. Mild circumferential thickening of the distal esophagus with a few prominent distal paraesophageal lymph nodes. This may represent a mild esophagitis. 7. Additional findings as described above. Please refer to below summary of Fleischner criteria recommendations for follow- up of incidental CT nodules (Melissa Artis, Guidelines for management of small pulmonary nodules detected on CT scans: A statement from the Fleischner Society, Radiology 237: [phone].) SOLID NODULES Solitary nodule size: <6 mm * Low risk patients: no follow-up needed * high risk patients: optional CT at 12 months Solitary nodule size: 6-8 mm * Low risk patients: follow-up at 6-12 months, then consider further follow-up at 18-24 months * high risk patients: initial follow-up CT at 6-12 months and then at 18-24 months if no change Solitary nodule size: >8 mm * either low or high risk patients - consider follow-up CT at 3 months, and/or CT-PET, and/or biopsy Multiple nodules size: <6 mm * Low risk patients: no routine follow-up * high risk patients: optional CT at 12 months Multiple nodules size: 6-8 mm * Low risk patients: follow-up at 3-6 months, then consider further follow-up at 18-24 months * high risk patients: follow-up at 3-6 months, then at 18-24 months if no change Multiple nodules size: >8 mm * Low risk patients: follow-up at 3-6 months, then consider further follow-up at 18-24 months * high risk patients: follow-up at 3-6 months, then at 18-24 months if no change Note: newly detected indeterminate nodule in persons 35 years of age or older. * Low risk patients: minimal or absent history of smoking and/or other known risk factors * high risk patients: history of smoking or of other known risk factors (e.g. first degree relative with lung cancer, or exposure to asbestos, radon, uranium) * if a nodule up to 8 mm is partly solid or is ground glass further follow-up is required after 24 months to exclude possible slow growing adenocarcinoma (CAROL) SUBSOLID NODULES Solitary pure ground-glass nodule * nodule size <6 mm - no CT follow-up required * nodule size >=6 mm - follow-up CT at 6-12 months, then every 2 years until 5 years Solitary part-solid nodule * nodule size <6 mm - no CT follow-up required * nodule size >=6 mm - follow-up CT at 3-6 months. If unchanged, and solid component remains <6 mm, then annual follow-up for 5 years Multiple subsolid nodules * nodule size <6 mm - follow-up CT at 3-6 months, consider further follow-up at 2 and 4 years if stable * nodule size >=6 mm - follow-up CT at 3-6 months, subsequent management based on the most suspicious nodule(s) 03/31/23 05:54 CT cervical spine wo con Stat FINDINGS: There is mild leftward curvature of the cervical spine. Vertebral body heights are maintained. No acute cervical spine fracture or subluxation is present. There is no prevertebral edema. Facet joints are intact. Moderate multilevel degenerative disc disease and facet arthrosis within the cervical spine is present. IMPRESSION: No acute cervical spine fracture or subluxation. CT facial bones wo con Stat FINDINGS: Globes are intact. There is no retrobulbar hematoma. Nasal contusion is present. There are mildly displaced, depressed bilateral nasal bone fractures. No additional facial fractures are present. Orbital floors are intact. Extensive sinus opacification is noted. Large air-fluid levels within the left frontal sinus are present. Ethmoid sinuses are largely opacified. Bilateral maxillary sinus air-fluid levels, left larger than right, are noted. There is moderate sphenoid sinus mucosal thickening. Temporomandibular joints are aligned. IMPRESSION: 1. Age indeterminate mildly displaced mildly depressed bilateral nasal bone fractures. No additional facial fractures. 2. Findings suggestive of acute sinusitis, as described above. CT head/brain wo con Stat FINDINGS: No acute intracranial hemorrhage, midline shift or mass effect is present. White matter hypodensity suggests small vessel disease. The ventricular system is unremarkable. The basal cisterns are patent. No extra-axial collections are present. There are no findings to suggest acute dural sinus thrombosis or acute territorial infarct. No acute calvarial fracture is present. There are fluid levels within the left frontal sinuses are noted. Left frontal sinuses are largely opacified. There is extensive mucosal thickening within the ethmoid sinuses. There is also mild mucosal thickening within the maxillary and sphenoid sinuses with bilateral maxillary sinus air-fluid levels. Age indeterminate mildly displaced depressed bilateral nasal bone fractures are present. There is a nasal contusion. IMPRESSION: 1. No acute intracranial findings. 2. No calvarial fracture. 3. Age indeterminate mildly displaced depressed bilateral nasal bone fractures. 4. Findings suggestive of acute sinusitis, as described above. Hospital Course (1) Multiple fractures of ribs of right side: Admitted to [facility] with telemetry Patient presenting from home with reports of severe right-sided rib pain. Was in [place] last week for his son's wedding and suffered a syncopal event. Was evaluated in the ED and per patient report, had unremarkable head, neck, chest CT. Was diagnosed with RSV. In the ED here, CT chest shows right fifth through ninth acute nondisplaced rib fractures, seventh and eighth ribs have anterior and posterior lateral fractures. Pain control with scheduled Tylenol, Lidoderm patch, PRN oxycodone and IV morphine for breakthrough pain Incentive spirometer Overnight pt had a fall from chair - see sas programmer remote note for detail no LOC Traumatic facial trauma CT head 1. No acute intracranial findings. 2. No calvarial fracture. 3. Age indeterminate mildly displaced depressed bilateral nasal bone fractures. 4. Findings suggestive of acute sinusitis, as described above. CT maxillofacial 1. Age indeterminate mildly displaced mildly depressed bilateral nasal bone fractures. No additional facial fractures. 2. Findings suggestive of acute sinusitis, as described above. CT cervical spine No acute cervical spine fracture or subluxation. Mildly displaced mildly depressed bilateral nasal bone fractures - Dr. Raygoza consulted - no need for any surgery - cont. unasyn for now (2) Pneumonitis: (3) Influenza A: (4) RSV infection: Bio fire + for RSV and influenza A CTA chest shows patchy and linear densities within the lung bases, greater on the right No leukocytosis, afebrile, procalcitonin WNL Likely secondary to atelectasis from rib fractures Received IV Zosyn in the ED, cont. w/ unasyn for sinusitis (pt also had facial trauma) Given duration of symptoms, Tamiflu not indicated for influenza A Continue supportive care with Mucinex, incentive spirometer, flutter valve CXR on 03/31 w/ pulm. vasc. congestion, received some IVF on admission. IVF were stopped and small dose iv lasix was given Pt is breathing better (04/01) and CXR much improved - pulm. vasc. 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 Plan for BMP on Wednesday after DC. FR on discharge, no other med changes recommended at this time Elevated LFTs - likely secondary to illness trending down - follow up as outpt Total Time Total Time Spent Total Time Spent (In Minutes): 40 Discharge Plan Discharge Items Patient Disposition: Home - Self-Care Reason For Visit: RIB FRACTURES, FLU A, RSV Discharge Diagnosis: Rib fractures, + RSV, + Influenza A Hyponatremia Activity: Per Instructions section Non-emergency contact: Primary Care Provider Call non-emergency contact if: you have any medication questions and your symptoms worsen Follow-up/Referrals: Tony Lawson MD [Primary Care Provider] - (Date & Time 04/09/2023 3:20 PM Provider Tony Lawson MD Department [facility] ) Diet: Regular Fluids: 1500ml (6 cups) Addtl Attending Provider Instructions: Follow up with your primary care doctor, the appointment was scheduled for you for 04/09/2023. Finish antibiotic treatment as prescribed. Continue using guaifenesin, flutter valve and spirometer. For pain, take tylenol 1000 mg three times a day, max daily dose is 3,000mg. For more severe pain, take oxycodone as prescribed. Also recommend to continue using lidocain patch, this can be often obtained over the counter under the name of Salonpas. Have your blood work checked - BMP - on Wednesday. Pending Studies at Discharge: Yes Studies:: final blood cultx Stand-Alone Forms: My [facility], Smoking Cessation Medications and DC Order Prescriptions: New oxycodone 5 mg Tablet 5 mg PO Q4H PRN (Reason: pain) Qty: 14 0RF amoxicillin-pot clavulanate 875-125 mg tablet 1 tab PO BID 4 Days Qty: 8 0RF pantoprazole 40 mg Tablet,Delayed Release (Dr/Ec) 40 mg PO QAM 30 Days Qty: 30 0RF guaifenesin [Mucinex] 600 mg Tablet Extended Release 12hr 600 mg PO Q12 7 Days Qty: 14 0RF Continued latanoprost 0.005 % drops 1 drp OPB HS acetaminophen [Tylenol Ex Str Rapid Release] 500 mg Tablet 500 mg PO Q6H PRN (Reason: PAIN/FEVER) ibuprofen 200 mg Tablet 200 mg PO Q6H PRN (Reason: PAIN/FEVER) Discharge Orders: Discharge Order (Routine); Ordered 04/03/23 Ordered By: Orlando Sotelo Admission Data Admit Date/Time: 03/30/23 15:11 Attending Provider: Orlando Sotelo Admit Provider: Jaymie Giron Primary Care Provider: Tony Lawson Other Providers: Jaymie Giron; Devan Raygoza Roshan
--- NOTE | 2023-04-08 11:58 | Coding Query ---
CODING QUERY To promote full compliance with coding requirements relating to patient care, provider participation is requested in all cases of head concierge uncertainty. Please assist us with the question(s) below: Coding Question(s): Pt admitted s/p fall with multiple fractured ribs/right side. Trace pleural effusion on CXR. CXR negative for pneumothorax. Chest CT : patchy and linear densities within lung bases, greater on right side most likely secondary to atelectasis .. Discharge Summary/notes document patient with RSV and Influenza A on admission. Pneumonitis is mentioned in notes/Discharge Summary . Please check below the phrase that describes the Pneumonia. Thanks for your help! Francisco Lora [facility] Physician Response: Patient was treated for Pneumonitis ( specify type if known) Patient was not treated for Pneumonitis Other: Please document: Principal Diagnosis: "that condition established after study, to be chiefly responsible for occasioning the admission of the patient to the hospital for care." Co-Existing Principal Diagnosis: "when two or more diagnoses equally meet the criteria for principal diagnosis as determined by the circumstances of admission, diagnostic work up, and/or therapy provided, and the Alphabetic Index, Tabular List, or another coding guideline does not provide sequencing direction, any one of the diagnoses may be sequenced first." "When the physician has documented what appears to be a current diagnosis in the body of the record, but has not included the diagnosis in the final diagnostic statement, the physician should be asked whether the diagnosis should be added." (Source Coding Clinic 2 QTR90. p3-4) ARMANDO
== END 2023-04-03 13:30 | disposition home or self-care (01) | DRG 183 ==
LOC: ED 11:20 → 2W 15:11 → SUATTDRO 15:11 → 2W 16:24